=== PATIENT | female | born 1950 | race Caucasian/White ===

== ENCOUNTER 2019-02-21 13:06 | Outpatient (CLI) | payer MEDICARE ==
--- NOTE | 2019-02-21 13:29 | RAD ---
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 COMPARISON: None FINDINGS: Atherosclerosis of the aorta. Enlarged cardiac silhouette. Pulmonary vessels are prominent. Costophrenic angles are clear. Lungs are hyperinflated with chronic changes. No masses or consolidation. No pneumothorax or acute osseous abnormalities. Dorsal column stimulators are noted, t erminating in the mid thoracic spine IMPRESSION: 1. Atherosclerosis 2. Hyperinflation with chronic changes of the lung parenchyma.
== END 2019-02-21 13:07 | disposition home or self-care (01) ==
LOC: RAD 13:06
PROVIDERS: ATTEND Thoracic Surgery (Cardiothoracic Vascular Surgery)
DX: C34.11 Malignant neoplasm of upper lobe, right bronchus or lung (principal); C34.12 Malignant neoplasm of upper lobe, left bronchus or lung; I70.90 Unspecified atherosclerosis
CPT/HCPCS: 71046

== ENCOUNTER 2019-04-18 10:05 | Outpatient (CLI) | payer MEDICARE ==
--- NOTE | 2019-04-18 12:14 | RAD ---
PA AND LATERAL CHEST: Date: 04/18/19 HISTORY: Shortness of breath. FINDINGS: Heart size is borderline. Lungs are clear of any infiltrative process. In reviewing a 02/21/19 study, I do not see a significant degree of interval change. A dorsal column stimulator is present. IMPRESSION: Chronic lung change. No acute process. Pleural changes in the left lung are stable. POS: TPC
--- NOTE | 2019-04-18 12:24 | NM ---
NUCLEAR MEDICINE VENTILATION PERFUSION SCAN: Date: 04/18/19 INDICATION: History of lung cancer with partial left upper lobe lobectomy. Difficulty breathing. COMPARISON: Chest x-ray done earlier today. FINDINGS: The ventilation portion of the exam was performed using 11 mCi Xenon-133 gas, followed by the perfusi on study using 6.1 mCi 99m-technetium MAA. The ventilation study shows some minimal air trapping in the lung bases. The perfusion study does not show any signs for any segmental or subsegmental defect. IMPRESSION: Findings compatible with very low probability of pulmonary embolus. POS: T[facility]
== END 2019-04-18 10:06 | disposition home or self-care (01) ==
LOC: NM 10:05
PROVIDERS: ATTEND Internal Medicine Critical Care Medicine
DX: I26.99 Other pulmonary embolism without acute cor pulmonale (principal)
CPT/HCPCS: 71046; 78582; A9540; A9558

== ENCOUNTER 2019-12-24 09:52 | Inpatient (IN) | payer MEDICARE, MEDICAID, OTHER ==
[~2019-12-24 09:52] MED LIST: Iopamidol-370 76% 500 ML 1 ML ONE
[2019-12-24] MEDS ORDERED: Diltiazem 125 MG/25 ML ONE (10:26)
[2019-12-24 10:35] LABS: #Eosinphils 0.1 thou/uL (0.0-0.7); #Lymphocytes 0.9 thou/uL (1.20-3.40); #Monocytes 0.7 thou/uL (0.11-0.59); #Neutrophils 14.6 thou/uL (1.40-6.50); %Basophils 0.2 % (0.0-1.0); %Eosinophils 0.6 % (0.0-10.0); %Lymphocytes 5.7 % (21.0-51.0); %Monocytes 4.4 % (0.0-10.0); %Neutrophils 89.1 % (42.0-75.0); Hemoglobin 13.7 g/dL (12.0-16.0); Mean Corpuscular HGB CONC 31.8 g/dL (32.0-36.0); Mean Corpuscular Hemoglobin 25.1 pg (27.0-31.0); Mean Platelet Volume 7.9 fL (7.4-10.4); Platelet Count 268 thou/uL (130-400); RBC Distribution Width 14.8 % (11.5-14.5); Red Blood Cell (RBC) Count 5.47 mill/uL (4.20-5.40); White Blood Cell (WBC) Count 16.3 thou/uL (4.8-10.8)
[2019-12-24 10:52] LABS: ALT (SGPT) 19 U/L (8-55); AST (SGOT) 23 U/L (5-34); Albumin 4.4 g/dL (3.4-4.8); Alkaline Phosphatase 81 U/L (40-110); Anion Gap 17 mmol/L (10-20); BUN (Urea Nitrogen) 19 mg/dL (9.8-20.1); Bilirubin, Total 0.7 mg/dL (0.2-1.2); Calc. Creatinine Clearance 0 mL/min (70-130); Calcium 10.2 mg/dL (7.8-10.44); Carbon Dioxide 35 mmol/L (23-31); Chloride 86 mmol/L (98-107); Estimated GFR-MDRD 50; Glucose 160 mg/dL (80-115); Potassium 3.2 mmol/L (3.5-5.1); Protein, Total 7.4 g/dL (6.0-8.3); Sodium 135 mmol/L (136-145)
[2019-12-24] MEDS ORDERED: Promethazine HCl 25 MG/ML VIAL ONE (10:57)
--- NOTE | 2019-12-24 11:13 | RAD ---
CHEST 1 VIEW: Date: 12/24/2019 HISTORY: Atrial fibrillation. COMPARISON: Radiograph dated 12/04/2019. FINDINGS: There are two dorsal column stimulator electric paddles projecting over the mid thoracic spine. Lungs are clear. No pneumothorax. No effusion. Cardiac silhouette and mediastinal contours are similar. IMPRESSION: No acute intrathoracic abnormality. POS: HOME
--- NOTE | 2019-12-24 12:01 | CT ---
CT ABDOMEN WITH CONTRAST CT PELVIS WITH CONTRAST: DATE: 12/24/2019 HISTORY: 69-year-old female with nausea and vomiting TECHNIQUE: IV injection of iodinated contrast media: Administered Oral contrast media:Not administered FINDINGS: Lung bases: Clear Liver: No focal solid mass. Diffusely low hepatic attenuation suggestive of fatty liver. Clips in gal lbladder fossa. Spleen: No splenomegaly.. Pancreas: No mass or surrounding fat stranding.. Adrenals: No mass.. Kidneys: No hydronephrosis or enhancement abnormalities.. Ureters: No dilation. Bladder: No pathology identified. Abdominal aorta: No aneurysm. Small bowel: No dilation. Colon: No adjacent fat stranding. Appendix: Normal. Free air: None. Free fluid: None. Lumbar spine: Bilateral onlay bone graft fusion with successful ankylosis, and bilateral pedicle scre ws, at L3, L4, L5, and S1. Dorsal column stimulator leads enter lower thoracic spinal canal and ascend. IMPRESSION: 1. No major pathology identified.. 2. Status post cholecystectomy. 3. Posterior lumbar fusion with hardware. 4. Dorsal column spinal cord stimulator. 5. Status post cholecystectomy. 6. Questionable hepatic steatosis.
[2019-12-24 13:04] LABS: CRP (Inflammatory) 2.41 mg/dL (= or < 0.5); Magnesium 1.6 mg/dL (1.6-2.6)
[2019-12-24 13:10] LABS: Bilirubin Negative (Negative); Blood, Urine Negative (Negative); Clarity Clear (Clear); Glucose, Urine (Dipstick) Normal (Negative); Leukocyte 75 Leu/uL (Negative); Nitrite Negative (Negative); Protein, Urine (Dipstick) 10 mg/dL (Neg-Trace); RBC/HPF 0-3 HPF (0-3); Urobilinogen Normal mg/dL (Less than 2)
[2019-12-24 13:11] LABS: Bacteria/HPF 1+ HPF (None Seen)
[2019-12-24 13:14] LABS: Digoxin 1.26 ng/mL (0.8-2.0)
[2019-12-24] MEDS ORDERED: Ondansetron PF 4 MG/2 ML Vial ONE (13:58)
[2019-12-24] MEDS ORDERED: Potassium Chloride 20 MEQ TAB PO SCH (14:00)
[2019-12-24 14:58] VITALS: BMI 34.6
[2019-12-24] MEDS ORDERED: Morphine ER 15 MG TAB PO PRN (16:09)
[2019-12-24] MEDS ORDERED: Sodium Chloride 0.9% 1,000 ML IV SCH (16:15)
[2019-12-24] MEDS ORDERED: Ondansetron PF 4 MG/2 ML Vial IVP SCH (20:45)
[2019-12-24] MEDS: Famotidine/PF 20 mg/2ml Vial SLOW IVP SCH (21:00)
[2019-12-24] MEDS: Atenolol 25 MG TAB PO SCH (21:01)
[2019-12-24] MEDS: Enoxaparin Sodium 80 MG/0.8 ML SYRINGE SC SCH (21:02)
[2019-12-24] MEDS: Enoxaparin Sodium 30 MG/0.3 ML SYRINGE SC SCH (21:02)
[2019-12-24] MEDS: Acetaminophen 325 MG TAB PO PRN (21:08)
--- NOTE | 2019-12-24 21:40 | HP ---
CHIEF COMPLAINT: Generalized weakness. HISTORY OF PRESENT ILLNESS: The patient is a 69-year-old female with a past medical history of AFib, recently diagnosed about 3 weeks ago, hypothyroidism, who presents to the hospital with complaints of generalized weakness, worsening for the past 3 weeks. The patient stated that about 3 weeks ago, she started feeling nauseated and feeling weak, so she went to her PCP who did an EKG and told her that she has AFib. The patient at this time was not rate controlled. She was asked to get checked into the hospital, however, she refused to do so. She then found herself a shank sorter, Dr. Hogue, and went to see him. The shank sorter had given her options of being admitted to the hospital for rate control versus at home with a monitor, however, she opted for being home with a heart monitor. The patient stated that she has been working with a shank sorter to titrating her medications for her heart rate control, however, this has been very unsuccessful. She denies any fevers or chills. However, she has been nauseated, which has worsened for the past few days. She had some emesis this morning. She is normally a very active person; however, for the past 3 weeks, she is unable to do anything at all. Today, she was unable to even get up and move around from her bedroom to her living room. She normally takes care of her 94-year-old father. PAST MEDICAL HISTORY: She has a history of lung cancer. She has a history of hypothyroidism. She has also had cervical cancer, skin cancer, hyperlipidemia, obesity. The patient had adenocarcinoma of the lung, DANE. PAST SURGICAL HISTORY: She has had a hysterectomy, cholecystectomy. She has had lobectomy of left upper lobe in 2010 and spinal fusion. REVIEW OF SYSTEMS: All negative except for the ones mentioned above in the HPI. FAMILY HISTORY: Mother had lung cancer. Father had alcoholism. ALLERGIES: SHE IS ALLERGIC TO AMLODIPINE AND PLAQUENIL. MEDICATIONS: As of the followin. Levothyroxine 125 mcg daily. 2. Atorvastatin 20 mg daily. 3. Atenolol 25 mg t.i.d. 4. MS Contin 50 mg b.i.d. p.r.n. 5. Furosemide 40 mg daily. 6. Metformin 500 mg daily. 7. Sertraline 50 mg daily. SOCIAL HISTORY: She denies any alcohol use. Smoking, she is a former smoker. Denies any drug use either. PHYSICAL EXAMINATION: VITAL SIGNS: As of the following; temperature of 97.7, 85, 16, 97% on room air, 159/59. GENERAL: She is awake, alert, and oriented x3. Does not appear in any distress. CV: S1, S2 present. Irregularly irregular. LUNGS: Clear to auscultation. No rhonchi or wheezes noted. ABDOMEN: Soft. Bowel sounds are present x2. Nontender upon palpation. EXTREMITIES: Just mild pitting edema to bilateral lower weaver area. NEUROVASCULAR: No focal deficits noted. SKIN: No cuts, lesions, or bruises noted. LABORATORY RESULTS: WBC of 16.3, hemoglobin of 13.7, hematocrit of 43.2, platelets of 268. Chemistry; sodium of 135, potassium of 3.2, BUN of 19, creatinine of 1.09. Troponin of 0.025. Her BNP is 183. Her lipase is 26. She had a CT of abdomen and pelvis, which indicated hepatic steatosis, otherwise nothing significant was noted. She also has a dorsal column spinal cord stimulator. ASSESSMENT AND PLAN: The patient is a very pleasant 69-year-old female, who presents to the hospital with complaints of generalized weakness. 1. Atrial fibrillation with in out of RVR. She was initially in the ER in RVR. She was given Cardizem bolus and started on Cardizem drip. We will continue with that. We will check a TSH on her. We will get Cardiology to see her. She recently had an echocardiogram at the shank sorter's office. I will hold off on that. I will keep her n.p.o. after midnight. I will replace electrolytes and continue to monitor. 2. Hypokalemia. We will replace the potassium. 3. Mild leukocytosis. We will check her urine. Her urine indicated WBCs of 11 to 20 with 1+ bacteria. She did have a chest x-ray, which did not show any acute abnormalities. The patient has no recent travel. No sick contacts. 4. Hyperlipidemia. We will continue her atorvastatin. 5. Hypothyroidism. We will continue her levothyroxine. 6. Deep vein thrombosis prophylaxis. She is normally on Xarelto. We will hold the Xarelto and put her on Lovenox 1 mg/kg in case any intervention is required in the morning. Job ID: [id number]
[2019-12-25] MEDS: Levothyroxine Sodium 125 MCG TAB PO SCH (05:17)
[2019-12-25] MEDS ORDERED: Dextrose 50% Abboject 50 ML SYRINGE SLOW IVP PRN (09:17)
[2019-12-25] MEDS ORDERED: Dextrose 5% in Water 1,000 ML IV PRN (09:17)
[2019-12-25] MEDS ORDERED: HumaLOG 300 UNITS/3 ML VIAL SC PRN (09:17)
[2019-12-25] MEDS: Diltiazem 125 MG in Sodium Chloride 0.9% 100 ML IVPB SCH (09:55)
[2019-12-25 10:01] LABS: Anion Gap 15 mmol/L (10-20); BUN (Urea Nitrogen) 11 mg/dL (9.8-20.1); Calc. Creatinine Clearance 114 mL/min (70-130); Calcium 8.7 mg/dL (7.8-10.44); Carbon Dioxide 30 mmol/L (23-31); Chloride 91 mmol/L (98-107); Estimated GFR-MDRD 69; Glucose 132 mg/dL (80-115); Magnesium 1.6 mg/dL (1.6-2.6); Sodium 134 mmol/L (136-145)
[2019-12-25 10:09] LABS: Potassium 2.4 mmol/L (3.5-5.1)
[2019-12-25] MEDS ORDERED: Potassium Chloride 20 MEQ TAB PO SCH ×2 (10:30→14:00)
[2019-12-25] MEDS: Potassium Chloride 10 MEQ in Premix Bag 1 BAG IVPB SCH ×2 (11:45→14:43)
[2019-12-25] MEDS: Atenolol 25 MG TAB PO SCH (11:48)
[2019-12-25] MEDS: Famotidine/PF 20 mg/2ml Vial SLOW IVP SCH ×2 (11:51→20:40)
--- NOTE | 2019-12-25 12:13 | PDOC.HOSPP ---
- Subjective Encounter Date: 12/25/19 Encounter Time: 10:30 Subjective: pt up in bed continues to feel unwell. Had some evens of afib rvr on ambulation - Objective Vital Signs & Weight: Vital Signs (12 hours) Temp Pulse Resp BP Pulse Ox 12/25/19 11:48 95 12/25/19 07:40 96 12/25/19 07:32 98.1 F 95 20 129/59 L 95 12/25/19 04:32 97.9 F 75 18 118/57 L 94 L 12/25/19 00:53 100 12/25/19 00:20 69 109/56 L Weight Weight 243 lb 4.8 oz I&O: 12/24/19 12/25/19 12/26/19 06:59 06:59 06:59 Intake Total 1440 Balance 1440 Result Diagrams: 12/24/19 10:09 12/25/19 09:29 Hospitalist ROS - Review of Systems Cardiovascular: denies: chest pain, palpitations, orthopnea, paroxysmal noc. dyspnea, edema, light headedness, other Gastrointestinal: denies: nausea, vomiting, abdominal pain, diarrhea, constipation, melena, hematochezia, other Genitourinary: denies: dysuria, frequency, incontinence, hematuria, retention, other - Medication Medications: Active Medications Generic Name Dose Route Start Last Admin Trade Name Freq PRN Reason Stop Dose Admin Acetaminophen 650 mg 12/24/19 18:03 12/24/19 21:08 Tylenol PO 650 mg Q6H PRN Administration Headache/Fever or Pain Atenolol 25 mg 12/24/19 21:00 12/25/19 11:48 Tenormin PO 25 mg TID OVI Administration Enoxaparin Sodium 80 mg 12/24/19 21:00 12/24/19 21:02 Lovenox SC 80 mg 0900,2100 OVI Administration Enoxaparin Sodium 30 mg 12/24/19 21:00 12/24/19 21:02 Lovenox SC 30 mg 0900,2100 OVI Administration Famotidine 20 mg 12/24/19 21:00 12/25/19 11:51 Pepcid SLOW IVP 20 mg BID OVI Administration Diltiazem HCl 125 mg/ Sodium 125 mls @ 5 mls/hr 12/24/19 18:15 12/25/19 09:55 Chloride IVPB 125 mls INF OVI Administration Protocol 5 MG/HR Potassium Chloride 10 meq/ 100 mls @ 100 mls/hr 12/25/19 10:30 12/25/19 11:45 Device IVPB 12/25/19 12:29 100 mls Q1H OVI Administration Levothyroxine Sodium 125 mcg 12/25/19 06:00 12/25/19 05:17 Synthroid PO 125 mcg 0600 OVI Administration Sertraline HCl 50 mg 12/25/19 09:00 12/25/19 11:49 Zoloft PO 50 mg DAILY OVI Administration - Exam Neck: negative: supple, symmetric, no JVD, no thyromegaly, no lymphadenopathy, no carotid bruit, JVD Heart: negative: RRR, no murmur, no gallops, no rubs, normal peripheral pulses, irregular, diminshed peripheral pulses, murmur present, II/IV, III/IV Respiratory: negative: CTAB, no wheezes, no rales, no ronchi, normal chest expansion, no tachypnea, normal percussion, rales, rhonchi, tachypneic, wheezes Gastrointestinal: negative: soft, non-tender, non-distended, normal bowel sounds , no palpable masses, no hepatomegaly, no splenomegaly, no bruit, no guarding, no rigidity, tender to palpation, distended, diminished bowl sounds, voluntary guarding Extremities: 1+ LE edema Hosp A/P (1) Atrial fibrillation with RVR Code(s): I48.91 - UNSPECIFIED ATRIAL FIBRILLATION Status: Acute (2) Obesity Code(s): E66.9 - OBESITY, UNSPECIFIED Status: Acute (3) HTN (hypertension) Code(s): I10 - ESSENTIAL (PRIMARY) HYPERTENSION Status: Acute (4) Hypothyroid Code(s): E03.9 - HYPOTHYROIDISM, UNSPECIFIED Status: Acute (5) Hypokalemia Code(s): E87.6 - HYPOKALEMIA Status: Acute - Plan will continue current dose of Cardizem. when pt ambulates she gets tachycardia. will continue lovonox for now. May need EP. will stop her atenolol.
[2019-12-25] MEDS ORDERED: Furosemide 40 MG/4 ML VIAL IVP SCH (14:15)
[2019-12-25] MEDS: Enoxaparin Sodium 30 MG/0.3 ML SYRINGE SC SCH ×2 (14:43→20:41)
[2019-12-25] MEDS: Enoxaparin Sodium 80 MG/0.8 ML SYRINGE SC SCH ×2 (14:43→20:41)
--- NOTE | 2019-12-25 14:51 | CON ---
DATE OF CONSULTATION: 12/25/2019 REASON FOR CONSULTATION: Atrial fibrillation with rapid ventricular rate. HISTORY OF PRESENT ILLNESS: Ms. Bernabe is a very pleasant 69-year-old , who I have recently saw and evaluated as a new patient. She came to the office with atrial fibrillation with RVR. On two separate occasions, I recommended she be admitted for rate control. She states she had responsibilities at home taking care of her 94-year-old father and could not. Therefore, there were attempts made at the rate control as an outpatient, which had failed. She recently presented with nausea and vomiting, in addition, atrial fibrillation with RVR. During my visit this morning, she is much better after receiving Lasix in addition IV Cardizem. She did have an echo dated 2019 with a normal LVEF. Last visit in the office was 12/19/2019. HOME MEDICATIONS: Include; 1. Levothyroxine. 2. Dexilant. 3. Atorvastatin. 4. Atenolol. 5. Fish oil. 6. MS Contin. 7. Zanaflex. 8. Vitamin B12. 9. Sertraline. 10. Lasix. 11. Metformin. 12. Xarelto. 13. Cardizem CD. 14. Digoxin. 15. Metolazone. PAST MEDICAL HISTORY: Pulmonary hypertension, diastolic dysfunction, diabetes mellitus, obstructive sleep apnea, and new onset atrial fibrillation with hypertension. PAST SURGICAL HISTORY: Lobectomy, spinal fusion, hysterectomy, bladder sling, total knee replacement, and cholecystectomy. ALLERGIES: HYDROXYCHLOROQUINE AND AMLODIPINE. REVIEW OF SYSTEMS: A 10-point review of systems is reviewed and is as above, otherwise negative. PHYSICAL EXAMINATION: GENERAL: Patient is a pleasant female who is in no acute distress. The patient appears their stated age. VITAL SIGNS: Blood pressure 117/56, pulse 72, and temperature 97.8. She was found on 5 mg IV Cardizem. NEUROLOGIC: The patient is alert and oriented x3 with no focal neurologic deficits. HEENT: Sclerae without icterus. Mouth has moist mucous membranes with normal pallor. NECK: No JVD. Carotid upstroke brisk. No bruits bilaterally. LUNGS: Clear to auscultation with unlabored respirations. Mild crackles noted bilaterally. BACK: No scoliosis or kyphosis. CARDIAC: Irregularly irregular with normal S1 and S2. No S3 or S4 noted. No significant rubs, murmurs, thrills, or gallops noted throughout the precordium. PMI is not displaced. There is no parasternal heave. ABDOMEN: Soft, nontender, nondistended. No peritoneal signs present. No hepatosplenomegaly. No abnormal striae. EXTREMITIES: 2+ femoral and 2+ dorsalis pedis pulses. No cyanosis or clubbing. 1 to 2+ pitting edema. SKIN: No gross abnormalities. PERTINENT LABS: Potassium 2.4, sodium 134, and creatinine 0.82. C-reactive protein 2.4. BNP of 183. IMPRESSION: Atrial fibrillation with rapid ventricular response. RECOMMENDATIONS: Likely, Ms. Bernabe has developed worsening fluid overload from recent atrial fibrillation with RVR. There have been several attempts at rate control of Ms. Bernabe as an outpatient, which have failed. At this point, we would recommend restarting novel oral anticoagulation therapy. She is currently on Lovenox. We will also recommend reinstituting p.o. Cardizem and titrating up while titrating IV Cardizem down. Plan is to proceed with rate control. She has only been on anticoagulation therapy for 2 weeks. We would like for her to be on anticoagulation therapy for a total of four weeks. We will try and avoid JUANIS with cardioversion due to COVID crisis. Job ID: [id number]
[2019-12-25] MEDS: Potassium Chloride 20 MEQ TAB PO SCH (18:05)
[2019-12-25] MEDS ORDERED: Ondansetron PF 4 MG/2 ML Vial IVP SCH (22:45)
[2019-12-26] MEDS: Levothyroxine Sodium 125 MCG TAB PO SCH (05:03)
[2019-12-26] MEDS: Diltiazem 125 MG in Sodium Chloride 0.9% 100 ML IVPB SCH (05:56)
[2019-12-26 08:37] LABS: Anion Gap 15 mmol/L (10-20); BUN (Urea Nitrogen) 9 mg/dL (9.8-20.1); Calc. Creatinine Clearance 116 mL/min (70-130); Calcium 8.4 mg/dL (7.8-10.44); Carbon Dioxide 31 mmol/L (23-31); Chloride 93 mmol/L (98-107); Estimated GFR-MDRD 71; Glucose 146 mg/dL (80-115); Sodium 136 mmol/L (136-145)
[2019-12-26 08:40] LABS: Potassium 2.7 mmol/L (3.5-5.1)
[2019-12-26] MEDS ORDERED: Potassium Chloride 20 MEQ TAB PO SCH (09:00)
[2019-12-26] MEDS: Famotidine/PF 20 mg/2ml Vial SLOW IVP SCH ×2 (09:06→21:14)
[2019-12-26] MEDS: Cyanocobalamin (Vitamin B-12) 1,000 MCG TAB PO SCH (09:06)
[2019-12-26] MEDS: Potassium Chloride 20 MEQ TAB PO SCH ×2 (09:06→17:51)
[2019-12-26] MEDS: Enoxaparin Sodium 80 MG/0.8 ML SYRINGE SC SCH ×2 (09:07→21:06)
[2019-12-26] MEDS: Enoxaparin Sodium 30 MG/0.3 ML SYRINGE SC SCH ×2 (09:07→21:06)
[2019-12-26] MEDS: Acetaminophen 325 MG TAB PO PRN ×2 (12:04→21:06)
--- NOTE | 2019-12-26 12:38 | PRG ---
DATE OF SERVICE: 12/26/2019 SUBJECTIVE: Ms. Bernabe is doing better. She has much less nausea. She is diuresing. Her rate is better controlled on p.o. Cardizem and IV Cardizem. She is still on IV Cardizem at 5 mg/hour. OBJECTIVE: VITAL SIGNS: Blood pressure 129/64, pulse 82, temperature 98.1. LUNGS: Minimal crackles bilaterally. HEART: Irregular regular. ABDOMEN: Soft, nontender, and nondistended. EXTREMITIES: No edema. PERTINENT LABORATORY DATA: Hemoglobin 13.7, hematocrit 43.2, and creatinine . IMPRESSION: Atrial fibrillation with rapid ventricular response. RECOMMENDATIONS: 1. We will continue to titrate her Cardizem from 180 daily to 270 daily. 2. Decrease Cardizem IV from 5 mg/hour to 2.5 per hour. 3. Screen for COVID, in case the patient requires JUANIS with cardioversion. 4. Continue Lovenox and we will switch to novel oral anticoagulation therapy once she is close to discharge. 5. Overall, LVEF is normal. Job ID: [id number]
[2019-12-26] MEDS: tiZANidine HCl 4 MG TAB PO PRN (21:06)
[2019-12-27 04:46] LABS: Hemoglobin 11.5 g/dL (12.0-16.0); Platelet Count 219 thou/uL (130-400)
[2019-12-27] MEDS: Levothyroxine Sodium 125 MCG TAB PO SCH (04:50)
--- NOTE | 2019-12-27 05:42 | PDOC.HOSPP ---
- Subjective Encounter Date: 12/26/19 Encounter Time: 09:00 Subjective: pt up in bed feels well today - Objective Vital Signs & Weight: Vital Signs (12 hours) Temp Pulse Resp BP Pulse Ox 12/27/19 03:10 97.4 F L 104 H 18 173/71 H 92 L 12/26/19 20:00 98.3 F 119 H 18 172/74 H 98 Weight Weight 239 lb 3.2 oz I&O: 12/25/19 12/26/19 12/27/19 06:59 06:59 06:59 Intake Total 5319 392 4133 Balance 6665 350 2233 Result Diagrams: 12/27/19 04:28 12/27/19 04:28 Additional Labs: Accuchecks 12/26/19 12/26/19 12/26/19 20:43 17:18 11:00 POC Glucose 165 H 137 H 161 H 12/26/19 05:52 POC Glucose 148 H Hospitalist ROS - Review of Systems Respiratory: denies: cough, dry, shortness of breath, hemoptysis, SOB with excertion, pleuritic pain, sputum, wheezing, other Cardiovascular: denies: chest pain, palpitations, orthopnea, paroxysmal noc. dyspnea, edema, light headedness, other Gastrointestinal: denies: nausea, vomiting, abdominal pain, diarrhea, constipation, melena, hematochezia, other - Medication Medications: Active Medications Generic Name Dose Route Start Last Admin Trade Name Freq PRN Reason Stop Dose Admin Acetaminophen 650 mg 12/24/19 18:03 12/26/19 21:06 Tylenol PO 650 mg Q6H PRN Administration Headache/Fever or Pain Cyanocobalamin 5,000 mcg 12/26/19 09:00 12/26/19 09:06 Vitamin B-12 PO 5,000 mcg DAILY OVI Administration Diltiazem HCl 90 mg 12/26/19 06:00 12/27/19 04:50 Cardizem PO 90 mg Q8HR VOI Administration Enoxaparin Sodium 80 mg 12/24/19 21:00 12/26/19 21:06 Lovenox SC 80 mg 09,2099 OVI Administration Enoxaparin Sodium 30 mg 12/24/19 21:00 12/26/19 21:06 Lovenox SC 30 mg 0900,2100 OVI Administration Famotidine 20 mg 12/24/19 21:00 12/26/19 21:14 Pepcid SLOW IVP 20 mg BID OVI Administration Diltiazem HCl 125 mg/ Sodium 125 mls @ 2.5 mls/hr 12/24/19 18:15 12/26/19 05: 56 Chloride IVPB 125 mls INF OVI Administration Protocol 2.5 MG/HR Levothyroxine Sodium 125 mcg 12/25/19 06:00 12/27/19 04:50 Synthroid PO 125 mcg 0600 OVI Administration Morphine Sulfate 15 mg 12/24/19 16:09 12/25/19 19:36 Ms Contin PO 15 mg Q24H PRN Administration Pain Potassium Chloride 40 meq 12/25/19 17:00 12/26/19 17:51 K-Dur PO 40 meq BID-WM OVI Administration Sertraline HCl 50 mg 12/25/19 09:00 12/26/19 09:06 Zoloft PO 50 mg DAILY OVI Administration Sodium Chloride 10 ml 12/25/19 21:00 12/26/19 21:14 Flush - Normal Saline IVF 10 ml Q12HR OVI Administration Sodium Chloride 10 ml 12/25/19 09:19 12/25/19 22:55 Flush - Normal Saline IVF 10 ml PRN PRN Administration Saline Flush Tizanidine HCl 2 mg 12/24/19 17:00 12/26/19 21:06 Zanaflex PO 2 mg Q24H PRN Administration Muscle Pain - Exam Neck: negative: supple, symmetric, no JVD, no thyromegaly, no lymphadenopathy, no carotid bruit, JVD Heart: negative: RRR, no murmur, no gallops, no rubs, normal peripheral pulses, irregular, diminshed peripheral pulses, murmur present, II/IV, III/IV Respiratory: negative: CTAB, no wheezes, no rales, no ronchi, normal chest expansion, no tachypnea, normal percussion, rales, rhonchi, tachypneic, wheezes Hosp A/P (1) Atrial fibrillation with RVR Code(s): I48.91 - UNSPECIFIED ATRIAL FIBRILLATION Status: Acute (2) Obesity Code(s): E66.9 - OBESITY, UNSPECIFIED Status: Acute (3) HTN (hypertension) Code(s): I10 - ESSENTIAL (PRIMARY) HYPERTENSION Status: Acute (4) Hypothyroid Code(s): E03.9 - HYPOTHYROIDISM, UNSPECIFIED Status: Acute (5) Hypokalemia Code(s): E87.6 - HYPOKALEMIA Status: Acute - Plan will continue current dose of Cardizem. when pt ambulates she gets tachycardia. will continue lovonox for now. May need EP. will stop her atenolol. 5/6 a fib meds adjusted per cardio. covid testing for JUANIS cardioversion. will continue AC.
[2019-12-27 06:41] LABS: Anion Gap 13 mmol/L (10-20); BUN (Urea Nitrogen) 8 mg/dL (9.8-20.1); Calc. Creatinine Clearance 115 mL/min (70-130); Calcium 8.6 mg/dL (7.8-10.44); Carbon Dioxide 29 mmol/L (23-31); Chloride 97 mmol/L (98-107); Estimated GFR-MDRD 71; Glucose 151 mg/dL (80-115); Sodium 136 mmol/L (136-145)
[2019-12-27] MEDS: Enoxaparin Sodium 30 MG/0.3 ML SYRINGE SC SCH (08:32)
[2019-12-27] MEDS: Cyanocobalamin (Vitamin B-12) 1,000 MCG TAB PO SCH (08:32)
[2019-12-27] MEDS: Enoxaparin Sodium 80 MG/0.8 ML SYRINGE SC SCH (08:32)
[2019-12-27] MEDS: Flecainide 50 MG TAB PO SCH ×2 (08:35→20:32)
[2019-12-27] MEDS: Potassium Chloride 20 MEQ TAB PO SCH ×2 (08:35→17:45)
[2019-12-27] MEDS: Famotidine/PF 20 mg/2ml Vial SLOW IVP SCH ×2 (08:35→20:32)
[2019-12-27] MEDS ORDERED: Metoprolol Tartrate 25 MG TAB PO SCH (11:00)
[2019-12-27 12:06] LABS: SARS-CoV-2 MS2 Positive; SARS-CoV-2 N Gene Negative; SARS-CoV-2 S Gene Negative; SARS-CoV-2 orf1ab Negative
--- NOTE | 2019-12-27 13:05 | PDOC.HOSPP ---
- Subjective Encounter Date: 12/27/19 Encounter Time: 10:15 Subjective: pt up in bed no complains. - Objective Vital Signs & Weight: Vital Signs (12 hours) Temp Pulse Resp BP Pulse Ox 12/27/19 11:47 98.4 F 105 H 20 153/69 H 99 12/27/19 07:45 97.8 F 95 14 142/63 H 98 12/27/19 03:10 97.4 F L 104 H 18 173/71 H 92 L Weight Weight 239 lb 3.2 oz I&O: 12/26/19 12/27/19 12/28/19 06:59 06:59 06:59 Intake Total 780 1994 Balance 780 1994 Result Diagrams: 12/27/19 04:28 12/27/19 06:10 Additional Labs: Accuchecks 12/27/19 12/27/19 12/26/19 10:50 05:54 20:43 POC Glucose 152 H 161 H 165 H 12/26/19 17:18 POC Glucose 137 H Hospitalist ROS - Review of Systems Respiratory: denies: cough, dry, shortness of breath, hemoptysis, SOB with excertion, pleuritic pain, sputum, wheezing, other Cardiovascular: denies: chest pain, palpitations, orthopnea, paroxysmal noc. dyspnea, edema, light headedness, other Gastrointestinal: denies: nausea, vomiting, abdominal pain, diarrhea, constipation, melena, hematochezia, other - Medication Medications: Active Medications Generic Name Dose Route Start Last Admin Trade Name Freq PRN Reason Stop Dose Admin Acetaminophen 650 mg 12/24/19 18:03 12/26/19 21:06 Tylenol PO 650 mg Q6H PRN Administration Headache/Fever or Pain Cyanocobalamin 5,000 mcg 12/26/19 09:00 12/27/19 08:32 Vitamin B-12 PO 5,000 mcg DAILY OVI Administration Diltiazem HCl 90 mg 12/27/19 12:00 12/27/19 11:58 Cardizem PO 90 mg Q6HR OVI Administration Enoxaparin Sodium 80 mg 12/24/19 21:00 12/27/19 08:32 Lovenox SC 80 mg 09,2099 OVI Administration Enoxaparin Sodium 30 mg 12/24/19 21:00 12/27/19 08:32 Lovenox SC 30 mg 0900,2100 OVI Administration Famotidine 20 mg 12/24/19 21:00 12/27/19 08:35 Pepcid SLOW IVP 20 mg BID OVI Administration Flecainide Acetate 50 mg 12/27/19 09:00 12/27/19 08:35 Tambocor PO 50 mg Q12HR OVI Administration Diltiazem HCl 125 mg/ Sodium 125 mls @ 2.5 mls/hr 12/24/19 18:15 12/26/19 05: 56 Chloride IVPB 125 mls INF OVI Administration Protocol 2.5 MG/HR Levothyroxine Sodium 125 mcg 12/25/19 06:00 12/27/19 04:50 Synthroid PO 125 mcg 0600 OVI Administration Morphine Sulfate 15 mg 12/24/19 16:09 12/25/19 19:36 Ms Contin PO 15 mg Q24H PRN Administration Pain Potassium Chloride 40 meq 12/25/19 17:00 12/27/19 08:35 K-Dur PO 40 meq BID-WM OVI Administration Sertraline HCl 50 mg 12/25/19 09:00 12/27/19 08:34 Zoloft PO 50 mg DAILY OVI Administration Sodium Chloride 10 ml 12/25/19 21:00 12/27/19 08:36 Flush - Normal Saline IVF 10 ml Q12HR OVI Administration Sodium Chloride 10 ml 12/25/19 09:19 12/25/19 22:55 Flush - Normal Saline IVF 10 ml PRN PRN Administration Saline Flush Tizanidine HCl 2 mg 12/24/19 17:00 12/26/19 21:06 Zanaflex PO 2 mg Q24H PRN Administration Muscle Pain - Exam Neck: negative: supple, symmetric, no JVD, no thyromegaly, no lymphadenopathy, no carotid bruit, JVD Heart: negative: RRR, no murmur, no gallops, no rubs, normal peripheral pulses, irregular, diminshed peripheral pulses, murmur present, II/IV, III/IV Respiratory: negative: CTAB, no wheezes, no rales, no ronchi, normal chest expansion, no tachypnea, normal percussion, rales, rhonchi, tachypneic, wheezes Gastrointestinal: negative: soft, non-tender, non-distended, normal bowel sounds , no palpable masses, no hepatomegaly, no splenomegaly, no bruit, no guarding, no rigidity, tender to palpation, distended, diminished bowl sounds, voluntary guarding Extremities: 1+ LE edema Hosp A/P (1) Atrial fibrillation with RVR Code(s): I48.91 - UNSPECIFIED ATRIAL FIBRILLATION Status: Acute (2) Obesity Code(s): E66.9 - OBESITY, UNSPECIFIED Status: Acute (3) HTN (hypertension) Code(s): I10 - ESSENTIAL (PRIMARY) HYPERTENSION Status: Acute (4) Hypothyroid Code(s): E03.9 - HYPOTHYROIDISM, UNSPECIFIED Status: Acute (5) Hypokalemia Code(s): E87.6 - HYPOKALEMIA Status: Acute - Plan will continue current dose of Cardizem. when pt ambulates she gets tachycardia. will continue lovonox for now. May need EP. will stop her atenolol. 5/5 a fib meds adjusted per cardio. covid testing for NIKI cardioversion. will continue AC. 5/6 pt is npo going for niki if her covid is negative. will continue AC.
--- NOTE | 2019-12-27 13:54 | PRG ---
DATE OF SERVICE: 12/27/2019 SUBJECTIVE: Ms. Bernabe continues to be in atrial fibrillation with RVR. She has been on IV Cardizem over the last 3 days. I have titrated up her Cardizem and I have added beta-ariella therapy. She continues to have increased rates noted on IV Cardizem and with little exertion. OBJECTIVE: VITAL SIGNS: Blood pressure 153/69, pulse 105, and temperature 98.4. LUNGS: Clear to auscultation. HEART: Irregularly irregular. ABDOMEN: Soft, nontender, nondistended. EXTREMITIES: No edema. PERTINENT LABORATORY DATA: COVID negative. IMPRESSION: Atrial fibrillation with rapid ventricular response. RECOMMENDATIONS: I have attempted over the last 3 days to rate control Ms. Bernabe on IV Cardizem and titrating up her p.o. Cardizem. She is on nearly maximum doses of Cardizem. I have added beta-ariella therapy with still difficulty with control. I would therefore recommend JUANIS cardioversion. The patient has been on anticoagulation therapy only for 2 weeks. I discussed procedure in full detail with Ms. Bernabe. Risks include, but not limited to the following: Damage to teeth, mouth, back of throat; damage to esophagus requiring emergency surgery as well as reaction to medication and aspiration pneumonia. Other risks include, failed cardioversion, need for repeat cardioversion, stroke, burning of skin, and need for pacemaker. All questions were answered. Given the above, the patient agreed to proceed with above procedure. Further recommendations pending the above. Job ID: [id number]
[2019-12-27] MEDS ORDERED: Rivaroxaban 10 MG TAB PO SCH (18:00)
[2019-12-27] MEDS: tiZANidine HCl 4 MG TAB PO PRN (20:31)
[2019-12-27] MEDS: Acetaminophen 325 MG TAB PO PRN (20:32)
[2019-12-27] MEDS: Metoprolol Tartrate 25 MG TAB PO SCH (20:32)
[2019-12-27] MEDS: Diltiazem 125 MG in Sodium Chloride 0.9% 100 ML IVPB SCH (21:13)
[2019-12-28 04:22] LABS: Anion Gap 14 mmol/L (10-20); BUN (Urea Nitrogen) 7 mg/dL (9.8-20.1); Calc. Creatinine Clearance 114 mL/min (70-130); Calcium 8.6 mg/dL (7.8-10.44); Carbon Dioxide 25 mmol/L (23-31); Chloride 101 mmol/L (98-107); Estimated GFR-MDRD 70; Glucose 138 mg/dL (80-115); Potassium 3.4 mmol/L (3.5-5.1); Sodium 137 mmol/L (136-145)
[2019-12-28] MEDS: Levothyroxine Sodium 125 MCG TAB PO SCH (05:25)
[2019-12-28] MEDS: Potassium Chloride 20 MEQ TAB PO SCH (08:44)
[2019-12-28] MEDS: Metoprolol Tartrate 25 MG TAB PO SCH (08:45)
[2019-12-28] MEDS: Flecainide 50 MG TAB PO SCH (08:46)
[2019-12-28] MEDS: Cyanocobalamin (Vitamin B-12) 1,000 MCG TAB PO SCH (08:47)
[2019-12-28] MEDS: Famotidine/PF 20 mg/2ml Vial SLOW IVP SCH (08:47)
[2019-12-28] MEDS ORDERED: PROPOFOL 200 MG/20 ML VIAL ONE (10:18)
[2019-12-28 10:21] VITALS: TEMP 98.1
[2019-12-28 12:54] VITALS: BP 175/77
--- NOTE | 2019-12-29 04:43 | DIS ---
DATE OF ADMISSION: 12/24/2019 DATE OF DISCHARGE: 12/28/2019 DISCHARGE DIAGNOSES: 1. Generalized weakness. 2. Atrial fibrillation with rapid ventricular response status post cardioversion. 3. Hypertension. HOSPITAL COURSE: The patient is a 69-year-old female who initially presented to the hospital with complaints of generalized weakness. She has been having on and off atrial fibrillation with RVR for quite some time. At this time, she was put on subcu Lovenox and Cardiology was consulted. She initially underwent a COVID testing, which was negative. She went a cardioversion, which was successful and per Cardiology, she was okay to be discharged home. The patient was discharged home. She will follow up with her primary and also with Cardiology as outpatient. HOME MEDICATIONS: As of the followin. She is going to be on flecainide 50 mg twice daily. 2. Metoprolol 12.5 b.i.d. 3. Metolazone 5 mg daily. 4. Levothyroxine 125 daily. 5. Zyrtec 10 mg daily. 6. Morphine 50 mg q.24 hours p.r.n. 7. Xarelto 20 mg daily. 8. Cardizem 180 mg daily. 9. Lasix 40 mg daily. 10. Metformin 500 mg b.i.d. PHYSICAL EXAMINATION: VITAL SIGNS: Temperature 98.1, 92, 18, 97% on room air, 154/70. GENERAL: She is awake, alert, and oriented x3. Does not appear in distress. CV: S1, S2 present. No murmurs, rubs or gallops. Again, she will be discharged home. She will follow up with Cardiology as outpatient. Job ID: [id number]
--- NOTE | 2019-12-29 09:20 | PQF ---
DEB LEVY KARISHMA [id number] [facility]287 [id number] CLINICAL DOCUMENTATION CLARIFICATION FORM: POST DISCHARGE Addendum to original discharge summary date: ____ Late entry note date: __ NOT SURE WHAT YOU ARE ASKING ME. DATE:12/29/2019 ATTN:Ana Laura Owens Please exercise your independent, professional judgment in responding to the clarification form. Clinical indicators are provided on the bottom of this form for your review Please check appropriate box(s): [ ] Associated Diagnosis: Hyponatremia [ ] Abnormal laboratory findings not clinically significant [ ] Other diagnosis [ ] Unable to determine In addition, please specify: Present on Admission (POA): [ ] Yes [ ] No [ ] Unable to determine For continuity of documentation, please document condition throughout progress notes and discharge summary. Thank You. CLINICAL INDICATORS - SIGNS / SYMPTOMS/ LABS are present in the medical record: Laboratory 12/23 Sodium 135, Potassium 3.2 Laboratory 12/24 Sodium 134, Potassium 2.4 Vital signs 12/23 BP 157/92, Pulse 123, Resp 18, O2 sat 96% H&P p1 12/23 Dr Vasquez stated that about 3 weeks ago, she started feeling nauseated and feeling weak H&P p2 12/23 Dr Vasquez Extremities: mild pitting edema to bilateral weaver area Consult p2 12/24 Cardiac:Irregularly irregular DS p1 12/27 generalized weakness RISK FACTORS H&P p1 12/23 69 year-old Female H&P p1 12/23 HLD H&P p1 12/23 hx lung cancer H&P p1 12/23 AFib H&P p1 12/23 Hypokalemia H&P p1 12/23 Obesity Consult p1 12/24 Pulmonary HTN Consult p1 12/24 Diastolic dysfunction Consult 12/24 - NIKKY TREATMENT MAR 12/23 IV Sodium Chloride 1L Series of electrolyte labs (This form is maintained as a part of the permanent medical record) 2014 [employer] All Rights Reserved [email or web address]
--- NOTE | 2019-12-29 09:23 | PQF ---
DEB LEVY KARISHMA [id number] [facility]287 [id number] CLINICAL DOCUMENTATION CLARIFICATION FORM: POST DISCHARGE Addendum to original discharge summary date: ____ Late entry note date: __ DATE:12/29/2019 ATTN:Ana Laura Owens Please exercise your independent, professional judgment in responding to the clarification form. Clinical indicators are provided on the bottom of this form for your review Please check appropriate box(s): [ ] Primary/Essential Hypertension [ ] Emergency [ ] Urgency [ ] Crisis [ ] Hypertensive Heart Disease [ ] Hypertensive Heart and Kidney Disease [ ] Hypertension with Encephalopathy [ ] Transient Hypertension [ ] Secondary Hypertension (please specify etiology, if known) [ X ] Other diagnosis ___SHE HAD WEAKNESS DUE TO AFIB [ ] Unable to determine In addition, please specify: Present on Admission (POA): [ ] Yes [ ] No [ X] Unable to determine For continuity of documentation, please document condition throughout progress notes and discharge summary. Thank You. CLINICAL INDICATORS - SIGNS / SYMPTOMS / LABS Vital signs 12/23 BP 159/69, Pulse 107, Resp 18, Temp 97.7 Vital signs 12/25 BP 172/74, Pulse 119, Resp 18, Temp 98.3 Vital signs 12/26 BP 168/79, pulse 115, Resp 20, Temp 97.9 H&P p1 12/23 Dr Vasquez stated that about 3 weeks ago, she started feeling nauseated and feeling weak Consult p2 12/24 Has developed worsening fluid overload from recent Afib with RVR H&P p2 12/23 Dr Vasquez Extremities: mild pitting edema to bilateral weaver area Consult p2 12/24 Cardiac:Irregularly irregular RISKS: H&P p1 5/3 69 year-old Female H&P p1 12/23 HLD H&P p1 12/23 hx lung cancer H&P p1 12/23 AFib H&P p1 12/23 Hypokalemia H&P p1 12/23 Obesity Consult p1 12/24 Pulmonary HTN Consult p1 12/24 Diastolic dysfunction Consult 12/24 - NIKKY TREATMENTS: OCT 25 IV Cardizem 125mg OCT 25 Cardizem 60mg oral OCT 25 IV Lasix 40mg OCT 25 Lopressor 12.5mg oral JUANIS with Cardioversion 12/27 EKG 12/24 cardiology consult 12/24 Moose Daley (This form is maintained as a part of the permanent medical record) 2014 [employer]. All Rights Reserved [email or web address]
--- NOTE | 2019-12-29 09:24 | PQF ---
DEB LEVY KARISHMA [id number] [facility]287 [id number] CLINICAL DOCUMENTATION CLARIFICATION FORM: POST DISCHARGE Addendum to original discharge summary date: ____ Late entry note date: __ DATE:12/29/2019 ATTN:Frederic Owens Please exercise your independent, professional judgment in responding to the clarification form. Clinical indicators are provided on the bottom of this form for your review Please check appropriate box(s): HEART FAILURE: A. TYPE: [ ] Systolic / HFrEF [ ] Diastolic / HFpEF [ ] Combined Systolic / Diastolic B. ACUITY [ ] Acute [ ] Acute on Chronic [ ] Chronic [ ] Other diagnosis [ ] Unable to determine NO HEART FAILURE In addition, please specify: Present on Admission (POA): [ ] Yes [X ] No [ ] Unable to determine For continuity of documentation, please document condition throughout progress notes and discharge summary. Thank You. CLINICAL INDICATORS - SIGNS / SYMPTOMS / LABS Laboratory 12/23 BNP 183.6, Troponin 0.025, C-reactive Protein 2.41 Vital signs 12/23 BP 157/92, Pulse 123, Resp 18, O2 sat 96% H&P p1 12/23 Dr Vasquez stated that about 3 weeks ago, she started feeling nauseated and feeling weak Consult p2 12/24 Has developed worsening fluid overload from recent Afib with RVR H&P p2 12/23 Dr Vasquez Extremities: mild pitting edema to bilateral weaver area Consult p1 12/24 Diastolic dysfunction Consult p2 12/24 Cardiac:Irregularly irregular PN p1 12/25 Lungs:Minimal crackles bilaterally RISKS: H&P p1 12/23 69 year-old Female H&P p1 12/23 HLD H&P p1 12/23 hx lung cancer H&P p1 12/23 AFib H&P p1 12/23 Hypokalemia H&P p1 12/23 Obesity Consult p1 12/24 Pulmonary HTN Consult p1 12/24 - NIKKY TREATMENTS: OCT 25 IV Cardizem 125mg OCT 25 Cardizem 60mg oral OCT 25 IV Lasix 40mg OCT 25 Lopressor 12.5mg oral JUANIS with Cardioversion 12/27 Chest -Xray 12/23 cardiology consult 12/24 Moose Daley (This form is maintained as a part of the permanent medical record) 2014 [employer]. All Rights Reserved [email or web address]
--- NOTE | 2019-12-29 14:14 | OP ---
DATE OF PROCEDURE: 12/28/2019 PREPROCEDURE DIAGNOSIS: Atrial fibrillation. POSTPROCEDURE DIAGNOSIS: Atrial fibrillation. PROCEDURE PERFORMED: Transesophageal echocardiogram. DESCRIPTION OF PROCEDURE: The patient was consented for the procedure. The patient was to undergo JUANIS in preparation for synchronized cardioversion. Propofol used for conscious sedation. The probe was passed easily into esophagus. FINDINGS: Left atrial appendage well visualized. Velocities are greater than 50 cm/second. IMPRESSION: No obvious mass within the left atrial appendage. Job ID: [id number]
--- NOTE | 2020-01-01 16:10 | OP ---
DATE OF PROCEDURE: 12/28/2019 PREPROCEDURE DIAGNOSIS: Atrial fibrillation. POSTPROCEDURE DIAGNOSIS: Sinus rhythm. PROCEDURE PERFORMED: Synchronized cardioversion. DESCRIPTION OF PROCEDURE: The patient was consented for the procedure. The patient underwent propofol for conscious sedation. She underwent successful synchronized cardioversion at 150 joules. IMPRESSION: Successful synchronized cardioversion. Job ID: [id number]
== END 2019-12-28 15:20 | disposition home or self-care (01) | DRG 310 ==
LOC: ERS 09:52 → 2NO 12:56
PROVIDERS: ADMIT Internal Medicine; ATTEND Internal Medicine
PROC: 8E0ZXY6 Isolation (ICD-10-PCS; 2019-12-24)
PROC: 5A2204Z Restoration of Cardiac Rhythm, Single (ICD-10-PCS; principal; 2019-12-28)
PROC: B245ZZ4 Ultrasonography of Left Heart, Transesophageal (ICD-10-PCS; 2019-12-28)
DX: I48.91 Unspecified atrial fibrillation (principal); Z20.828 Contact with and (suspected) exposure to other viral communicable diseases; I10 Essential (primary) hypertension; E03.9 Hypothyroidism, unspecified; E66.9 Obesity, unspecified; E78.5 Hyperlipidemia, unspecified; E87.6 Hypokalemia; D72.829 Elevated white blood cell count, unspecified; I27.20 Pulmonary hypertension, unspecified; G47.33 Obstructive sleep apnea (adult) (pediatric); Z96.659 Presence of unspecified artificial knee joint; Z68.34 Body mass index [BMI] 34.0-34.9, adult; Z85.118 Personal history of other malignant neoplasm of bronchus and lung; Z85.41 Personal history of malignant neoplasm of cervix uteri; Z98.1 Arthrodesis status; Z90.710 Acquired absence of both cervix and uterus; Z90.49 Acquired absence of other specified parts of digestive tract; Z79.899 Other long term (current) drug therapy; Z79.890 Hormone replacement therapy; Z79.84 Long term (current) use of oral hypoglycemic drugs; Z88.8 Allergy status to other drugs, medicaments and biological substances; Z87.891 Personal history of nicotine dependence
CPT/HCPCS: 36415; 36416; 71045; 74177; 80048; 80053; 80162; 81003; 81015; 82565; 83690; 83735; 83880; 84443; 84484; 85014; 85018; 85025; 85049; 86140; 87086; 87635; 93005; 93312; 94760; 96365; 96366; 96368; J1650; J1940; J2405; J2550; J2704; J3475; J3480; J3490; Q9967; S0028; U0003

== ENCOUNTER 2020-01-09 09:16 | Outpatient (CLI) | payer MEDICARE, MEDICAID, OTHER ==
[2020-01-09 10:59] LABS: #Basophils 0.1 thou/uL (0.0-0.2); #Eosinphils 0.1 thou/uL (0.0-0.7); #Lymphocytes 2.1 thou/uL (1.20-3.40); #Monocytes 0.6 thou/uL (0.11-0.59); #Neutrophils 6.5 thou/uL (1.40-6.50); %Basophils 0.7 % (0.0-1.0); %Eosinophils 1.3 % (0.0-10.0); %Lymphocytes 22.4 % (21.0-51.0); %Neutrophils 69.6 % (42.0-75.0); Hemoglobin 12.3 g/dL (12.0-16.0); Mean Corpuscular HGB CONC 31.2 g/dL (32.0-36.0); Mean Corpuscular Hemoglobin 25.1 pg (27.0-31.0); Mean Corpuscular Volume 80.5 fL (78.0-98.0); Mean Platelet Volume 7.8 fL (7.4-10.4); Platelet Count 312 thou/uL (130-400); RBC Distribution Width 15.5 % (11.5-14.5); Red Blood Cell (RBC) Count 4.89 mill/uL (4.20-5.40); White Blood Cell (WBC) Count 9.3 thou/uL (4.8-10.8)
[2020-01-09 11:19] LABS: Anion Gap 16 mmol/L (10-20); BUN (Urea Nitrogen) 14 mg/dL (9.8-20.1); Calc. Creatinine Clearance 0 mL/min (70-130); Calcium 9.5 mg/dL (7.8-10.44); Carbon Dioxide 26 mmol/L (23-31); Chloride 98 mmol/L (98-107); Estimated GFR-MDRD 65; Glucose 125 mg/dL (80-115); Potassium 3.3 mmol/L (3.5-5.1); Sodium 137 mmol/L (136-145)
[2020-01-09 18:43] LABS: SARS-CoV-2 MS2 Positive; SARS-CoV-2 N Gene Negative; SARS-CoV-2 S Gene Negative; SARS-CoV-2 orf1ab Negative
== END 2020-01-09 09:17 | disposition home or self-care (01) ==
LOC: LABBT 09:16
PROVIDERS: ATTEND Internal Medicine Cardiovascular Disease
DX: Z01.812 Encounter for preprocedural laboratory examination (principal); Z11.59 Encounter for screening for other viral diseases; I48.91 Unspecified atrial fibrillation
CPT/HCPCS: 80048; 85025; U0003; 87635

== ENCOUNTER 2020-01-11 | Day surgery (SDC) | payer MEDICARE, MEDICAID | END 2020-01-11 13:00 | disposition home or self-care (01) | PROC: 5A2204Z Restoration of Cardiac Rhythm, Single (ICD-10-PCS; principal; 2020-01-11) | DX: I48.19 Other persistent atrial fibrillation (principal); I11.0 Hypertensive heart disease with heart failure; I50.32 Chronic diastolic (congestive) heart failure; I27.20 Pulmonary hypertension, unspecified; E11.9 Type 2 diabetes mellitus without complications; G47.33 Obstructive sleep apnea (adult) (pediatric); Z79.01 Long term (current) use of anticoagulants; Z79.2 Long term (current) use of antibiotics; Z79.84 Long term (current) use of oral hypoglycemic drugs; Z79.899 Other long term (current) drug therapy; Z88.8 Allergy status to other drugs, medicaments and biological substances; Z91.048 Other nonmedicinal substance allergy status; Z98.1 Arthrodesis status ==

== ENCOUNTER 2020-02-01 06:12 | Outpatient (CLI) | payer MEDICARE, OTHER ==
[2020-02-01 11:41] LABS: Hemoglobin 12.6 g/dL (12.0-16.0); Mean Corpuscular HGB CONC 30.8 g/dL (32.0-36.0); Mean Corpuscular Hemoglobin 24.3 pg (27.0-31.0); Mean Corpuscular Volume 78.9 fL (78.0-98.0); Mean Platelet Volume 7.8 fL (7.4-10.4); Platelet Count 324 thou/uL (130-400); RBC Distribution Width 16.1 % (11.5-14.5); Red Blood Cell (RBC) Count 5.18 mill/uL (4.20-5.40); White Blood Cell (WBC) Count 11.9 thou/uL (4.8-10.8)
[2020-02-01 12:03] LABS: Anion Gap 16 mmol/L (10-20); BUN (Urea Nitrogen) 10 mg/dL (9.8-20.1); Calc. Creatinine Clearance 0 mL/min (70-130); Calcium 8.9 mg/dL (7.8-10.44); Carbon Dioxide 23 mmol/L (23-31); Chloride 105 mmol/L (98-107); Estimated GFR-MDRD 67; Glucose 153 mg/dL (80-115); Potassium 4.2 mmol/L (3.5-5.1); Sodium 140 mmol/L (136-145)
[2020-02-01 12:11] LABS: INR-International Normal Ratio 2.1; PTT 43.1 sec (22.9-36.1)
== END 2020-02-01 06:13 | disposition home or self-care (01) ==
LOC: LABBT 06:12
PROVIDERS: ATTEND Internal Medicine Cardiovascular Disease
DX: Z01.818 Encounter for other preprocedural examination (principal); Z11.59 Encounter for screening for other viral diseases; I48.91 Unspecified atrial fibrillation
CPT/HCPCS: 80048; 85027; 85610; 85730; U0003; 87635

== ENCOUNTER 2020-02-05 08:04 | Observation (INO) | payer MEDICARE ==
[2020-02-05] MEDS ORDERED: Ondansetron PF 4 MG/2 ML Vial ONE (10:50)
[2020-02-05] MEDS ORDERED: Rocuronium Bromide 10 MG/ML (10ML VIAL) ONE (10:50)
[2020-02-05] MEDS ORDERED: Glycopyrrolate 0.2 MG/ML 5 ML SYRINGE ONE (10:50)
[2020-02-05] MEDS ORDERED: Dexamethasone 20 MG/5 ML VIAL ONE (10:50)
[2020-02-05] MEDS ORDERED: PROPOFOL 200 MG/20 ML VIAL ONE (10:50)
[2020-02-05] MEDS ORDERED: Heparin 25,000 units/D5W 500 ML ONE (11:31)
[2020-02-05] MEDS ORDERED: Heparin 10,000 UNITS/1 ML VIAL ONE ×2 (11:31→13:34)
[2020-02-05] MEDS ORDERED: Phenylephrine 10 MG/ML VIAL ONE (11:58)
[2020-02-05] MEDS ORDERED: Fentanyl 100 MCG/2 ML VIAL ONE ×3 (11:58→15:26)
[2020-02-05] MEDS ORDERED: Isoproterenol 0.2 MG/1 ML AMP ONE (12:40)
[2020-02-05] MEDS ORDERED: Protamine Sulfate 50 MG/5 ML VIAL ONE (14:50)
[2020-02-05] MEDS ORDERED: Ondansetron HCl/PF 4 MG/2 ML Vial IVP PRN (15:13)
[2020-02-05] MEDS ORDERED: Promethazine HCl 25 MG/ML VIAL IM PRN (15:13)
[2020-02-05] MEDS ORDERED: Promethazine HCl 25 MG/ML VIAL SLOW IVP PRN (15:13)
[2020-02-05] MEDS ORDERED: Ketorolac Tromethamine 30 MG/ML VIAL ONE (15:27)
[2020-02-05] MEDS ORDERED: Acetaminophen/Codeine 30-300mg Tablet PO PRN (15:30)
[2020-02-05] MEDS ORDERED: Ketorolac Tromethamine 30 MG/ML VIAL IVP PRN (15:31)
[2020-02-05] MEDS ORDERED: Promethazine HCl 25 MG/ML VIAL ONE (15:54)
[2020-02-05] MEDS ORDERED: Albuterol Sulfate 2.5 mg/3 ml Neb NEB PRN (15:56)
[2020-02-05] MEDS ORDERED: Morphine ER 15 MG TAB PO PRN (16:10)
[2020-02-05] MEDS ORDERED: tiZANidine HCl 4 MG TAB PO PRN (16:11)
[2020-02-05] MEDS ORDERED: Rivaroxaban 10 MG TAB PO SCH (17:00)
[2020-02-05] MEDS: metFORMIN 500 MG TAB PO SCH (17:20)
[2020-02-05] MEDS: Acetaminophen/Codeine 30-300mg Tablet PO PRN (17:20)
[2020-02-05] MEDS: Sucralfate 1 GM TAB PO SCH ×2 (17:20→20:37)
[2020-02-05 17:22] VITALS: BMI 33.6
[2020-02-05] MEDS: Fish Oil 1,000 MG CAP PO SCH (20:37)
[2020-02-05] MEDS ORDERED: Atorvastatin Calcium 20 MG TAB PO SCH (21:00)
--- NOTE | 2020-02-05 21:16 | OP ---
DATE OF PROCEDURE: 02/05/2020 PROCEDURES PERFORMED: Electrophysiology study and radiofrequency ablation. REASON FOR PROCEDURE: Mrs. Bernabe is a 69-year-old woman with history of chronic CHF, diastolic with preserved LVEF on echo, atrial fibrillation noted first time in November but could have present before. She has marked fatigue and tiredness while persisting atrial fibrillation despite the repeat cardioversion. She has a history of lung and cervical cancer in remission, obesity, and sleep apnea. She is well anticoagulated with Xarelto without fail over a month. DESCRIPTION OF PROCEDURE: The patient received general anesthesia by Anesthesia specialist. The left and right femoral venous area was prepped, draped, and cannulated x2 under ultrasound guidance. On the left side, an 11-Urdu sheath was used to advance an intracardiac echocardiogram probe, which was used to monitor the transseptal puncture, the catheter manipulation, and the pericardial space throughout the procedure. Also, from a left side, a Preface long sheath was used to maneuver a duo-Deca catheter into the CS and the right atrial position. From the right side initially, two 8-Urdu short sheaths were introduced, through which a ThermoCool SFST catheter was advanced to the right atrium. 3D map of the right atrium was obtained including the His and CS positions. Following that, IV heparin was administered in an IV bolus and drip fashion and was periodically adjusted to keep the ACT over 350. The short sheaths on the right femoral vein were exchanged to SL1 transseptal sheaths, which were used to perform transseptal puncture x2 with the help of a powered Medford needle with fluoroscopic and intracardiac echocardiographic monitoring. Following that, 3D map of left atrium was performed demonstrating left common pulmonary vein and severe scaring. Pulmonary venous isolation of the left common femoral vein and the two right-sided pulmonary veins were performed. Also, a roof line was placed and inferoposterior line was placed to isolate the posterior wall. Throughout the posterior wall cautery, careful attention was paid to the esophageal temperature with an esophageal temperature probe monitoring should any mild or heating occurred, high-flow irrigation was delivered in that spot. The patient remained in atrial fibrillation. Further lesions were placed over the CS roof in the bundle of left atrium, also in the left atrioseptal and inferoseptal area. The patient remains in atrial fibrillation. At this point, decision was made to perform cardioversion. The patient did not respond to 200 joules, but converted with 360 joules. Isuprel was administered, and any reconnections were checked and reablated. The left common and two right-sided pulmonary veins as well as posterior wall remained isolated. Catheter was withdrawn from the left side. Heparin was stopped, and a 3D map of the right atrium was obtained. A right atrial tachycardia was seen, which was originated from the superior vena cava. Isolation of the superior vena cava was performed using the ThermoCool SFST catheter. High-voltage pacing was performed before each ablation to detect diaphragmatic stimulation and avoid damage to nerve. Following that, the superior vena cava was easily isolated and the patient remained in sinus rhythm despite burst atrial pacing maneuvers. She did not reinduce any atrial fibrillation or other SVT. A baseline cycle length during atrial fibrillation 575 milliseconds, QRS 70 milliseconds, QT 245 milliseconds, and HV 50 milliseconds were noted. AV Wenckebach cycle length was about 350 milliseconds. The total of 79 lesions delivered at 21 minutes and 17 seconds. CONCLUSION: 1. Successful isolation of left common and right inferior and right superior pulmonary veins and posterior wall with a roof and an inferior line. 2. During Isuprel, a right atrial SVC tachycardia was noted and SVC isolation was also performed. 3. Left common PV and severe scarring of the LA was observed. 4. Further ablation lesion placed in the base of left atrium over the CS roof as well as in the left interatrial septum. 5. Cardioversion restored sinus rhythm. 6. Normal sinus AV kenyatta function. No evidence of accessory pathway demonstrated. 7. No further arrhythmia inducible at end of the case. PLAN: Resume oral anticoagulation and wean off AV kenyatta blocking agents. Monitor for recurrent atrial arrhythmias. Job ID: [id number] [facility]
[2020-02-06] MEDS: Acetaminophen/Codeine 30-300mg Tablet PO PRN (00:42)
[2020-02-06] MEDS ORDERED: Levothyroxine Sodium 125 MCG TAB PO SCH (06:00)
[2020-02-06] MEDS: metFORMIN 500 MG TAB PO SCH ×2 (08:17→11:14)
[2020-02-06] MEDS: Fish Oil 1,000 MG CAP PO SCH (08:18)
[2020-02-06] MEDS: Sucralfate 1 GM TAB PO SCH ×2 (08:19→12:22)
[2020-02-06] MEDS ORDERED: Rivaroxaban 10 MG TAB PO SCH ×2 (08:35→08:36)
[2020-02-06] MEDS ORDERED: Potassium Chloride 20 MEQ TAB PO SCH (09:00)
[2020-02-06] MEDS ORDERED: Furosemide 40 MG TAB PO SCH ×2 (09:00→12:00)
[2020-02-06] MEDS ORDERED: Furosemide 40 MG/4 ML VIAL SLOW IVP SCH (09:00)
[2020-02-06] MEDS ORDERED: Cyanocobalamin (Vitamin B-12) 1,000 MCG TAB PO SCH (09:00)
[2020-02-06] MEDS ORDERED: DESIPRAMINE FS SCH (09:00)
[2020-02-06] MEDS ORDERED: Loratadine 10 MG TAB PO SCH (09:00)
[2020-02-06 11:32] VITALS: BP 120/59; TEMP 98.5
--- NOTE | 2020-02-06 17:39 | EKG ---
Test Reason : STAT Blood Pressure : / mmHG Vent. Rate : 096 BPM Atrial Rate : 096 BPM P-R Int : 176 ms QRS Dur : 086 ms QT Int : 370 ms P-R-T Axes : 077 043 -79 degrees QTc Int : 467 ms Normal sinus rhythm Nonspecific T wave abnormality Abnormal ECG When compared with ECG of 05-FEB-2020 09:02, Sinus rhythm has replaced Atrial fibrillation Vent. rate has decreased BY [address] no longer depressed in Inferior leads ST no longer depressed in Anterior leads Confirmed by DR. Lopez MEDINA (3) on 02/06/2020 5:39:14 PM Referred By: DARRIAN Confirmed By:DR. Lopez MEDINA
--- NOTE | 2020-02-06 17:43 | EKG ---
Test Reason : Blood Pressure : / mmHG Vent. Rate : 114 BPM Atrial Rate : 114 BPM P-R Int : 000 ms QRS Dur : 086 ms QT Int : 304 ms P-R-T Axes : 084 061 239 degrees QTc Int : 419 ms Sinus tachycardia with Premature supraventricular complexes Abnormal ECG When compared with ECG of 05-FEB-2020 16:09, (Unconfirmed) Premature supraventricular complexes are now Present Confirmed by DR. Lopez MEDINA (3) on 02/06/2020 5:42:59 PM Referred By: [facility] Confirmed By:DR. Lopez MEDINA
--- NOTE | 2020-02-08 01:59 | DIS ---
DATE OF ADMISSION: 02/05/2020 DATE OF DISCHARGE: 02/06/2020 DIAGNOSIS: Atrial fibrillation. PROCEDURES PERFORMED: Include electrophysiology study with three dimensional mapping and radiofrequency ablation for atrial fibrillation. Successful isolation of the left common and right inferior and right superior pulmonary veins as well as posterior wall of the roof in inferior lines placed. With the Isuprel, right atrial SVC tachycardia was noted and SVC isolation was performed. Severe scarring of the left atrium was observed as well as a left common pulmonary vein. Further ablation was placed at the base of the left atrium over the CS roof as well as the left infra-atrial septum. Cardioversion was required to restore sinus rhythm. Normal AV kenyatta function was seen. No accessory pathway or further atrial arrhythmias were inducible at the end of the case. Recommendations were continue anticoagulation and watch for recurrent arrhythmias resuming antiarrhythmic therapy if recurrence is seen. Total ablation time was 21 minutes. HISTORY OF PRESENT ILLNESS: Ms. Bernabe is a 69-year-old woman with a history of congestive heart failure with diastolic dysfunction and preserved LVEF on echo. Atrial fibrillation was first diagnosed in November, but was likely present before this. Her arrhythmias had early recurrence. Following the cardioversion, she was taken to the EP lab for ablation as detailed above. She was anticoagulated with Xarelto for greater than 30 days prior to ablation with no missed doses. SUBJECTIVE: Ms. Bernabe is having some shortness of breath post ablation. No evident bleeding complications. She has not experienced any heart racing or palpitations postablation. She was given IV Lasix and has had good response to that, largely resolving her shortness of breath concern this morning. Overall, she feels stable and ready for discharge. OBJECTIVE: VITAL SIGNS: Temperature 98.5, pulse 99, blood pressure 120/59, respirations 14, and oxygen 98% on room air. GENERAL: The patient is alert and oriented. Speech is clear. Affect is appropriate. She is morbidly obese. NECK: Supple without jugular venous distention. HEART: Rate is irregularly irregular with occasional ectopic beats. There is a crisp S1 and S2. PMI is nondisplaced. LUNGS: Clear to auscultation. Slightly diminished in the bases due to habitus. ABDOMEN: Obese, soft, and nontender without palpable masses. Bilateral groin sites are stable without evidence of bleeding complication or hematoma. EXTREMITIES: Lower extremities are warm, dry to touch. Well perfused without clubbing, cyanosis, or edema. NEUROLOGIC: Grossly intact and nonfocal. Gait was not assessed. The patient was able to sit at bedside without difficulty. DIAGNOSTIC STUDIES: Telemetry and EKG show a largely sinus rhythm with occasional paroxysmal atrial tachycardia runs, spontaneously terminating to sinus rhythm. DISCHARGE MEDICATIONS: Resuming home medication of; 1. Zanaflex. 2. Zoloft. 3. Metformin. 4. MS Contin. 5. Lopressor 25 mg b.i.d. 6. Vitamin B12. 7. Levothyroxine. 8. DuoNeb. 9. Fish oil. 10. Cardizem 240 mg daily. 11. Zyrtec. 12. Atorvastatin. 13. Albuterol. 14. Desipramine. 15. Xarelto 20 mg daily. 16. Furosamide 40 mg daily, may take an additional 40 mg dose daily as needed for edema, shortness of breath, weight gain, or fluid retention. New prescriptions for; 1. Carafate 1 g p.o. q.i.d. x56 doses. 2. Protonix 40 mg p.o. daily for 30 days. CONDITION AT DISCHARGE: Stable. DISCHARGE INSTRUCTIONS: No lifting more than 10 to 15 pounds. Follow up with [facility] in 6 weeks. Contact our office with any postablation concerns. No soaking baths or driving until leg sites are well healed at least 3 days. No missed doses of anticoagulation. Job ID: [id number]
--- NOTE | 2020-02-09 14:47 | EKG ---
Test Reason : PREOP Blood Pressure : / mmHG Vent. Rate : 149 BPM Atrial Rate : 357 BPM P-R Int : 000 ms QRS Dur : 086 ms QT Int : 292 ms P-R-T Axes : 000 063 270 degrees QTc Int : 459 ms Atrial fibrillation with rapid ventricular response Abnormal ECG When compared with ECG of 24-DEC-2019 09:57, Vent. rate has increased BY 49 BPM T wave inversion no longer evident in Anterior leads Confirmed by DR. Lopez MEDINA (3) on 02/05/2020 2:19:45 PM Referred By: DARRIAN Confirmed By:DR. Lopez MEDINA
== END 2020-02-06 12:58 | disposition home or self-care (01) ==
LOC: CCL 08:04 → 2NO 14:27
PROVIDERS: ADMIT Internal Medicine Cardiovascular Disease; ATTEND Internal Medicine Cardiovascular Disease
PROC: 02583ZZ Destruction of Conduction Mechanism, Percutaneous Approach (ICD-10-PCS; principal; 2020-02-05)
PROC: 02K83ZZ Map Conduction Mechanism, Percutaneous Approach (ICD-10-PCS; 2020-02-05)
PROC: 4A023FZ Measurement of Cardiac Rhythm, Percutaneous Approach (ICD-10-PCS; 2020-02-05)
PROC: 4A0234Z Measurement of Cardiac Electrical Activity, Percutaneous Approach (ICD-10-PCS; 2020-02-05)
DX: I48.19 Other persistent atrial fibrillation (principal); I47.1 Supraventricular tachycardia; I50.32 Chronic diastolic (congestive) heart failure; I42.8 Other cardiomyopathies; E11.9 Type 2 diabetes mellitus without complications; E03.9 Hypothyroidism, unspecified; G47.30 Sleep apnea, unspecified; E66.9 Obesity, unspecified; Z68.33 Body mass index [BMI] 33.0-33.9, adult; Z85.118 Personal history of other malignant neoplasm of bronchus and lung; Z85.41 Personal history of malignant neoplasm of cervix uteri; Z79.01 Long term (current) use of anticoagulants; Z79.84 Long term (current) use of oral hypoglycemic drugs; Z79.899 Other long term (current) drug therapy; Z88.1 Allergy status to other antibiotic agents; Z88.8 Allergy status to other drugs, medicaments and biological substances; Z91.048 Other nonmedicinal substance allergy status; Z90.2 Acquired absence of lung [part of]; Z98.1 Arthrodesis status
CPT/HCPCS: 76942; 82962 ×2; 85347 ×2; 92960; 93005 ×2; 93613; 93623; 93655; 93656; 93657; 93662; 94640; C1732 ×3; C1759; C1884; 36416; 93010; 96374; 96376; G0378; J1100; J1644; J1885; J1940; J2370; J2405; J2550; J2704; J2720; J3010; J7620

== ENCOUNTER 2020-02-15 06:54 | Outpatient (CLI) | payer MEDICARE, MEDICAID, OTHER ==
[2020-02-15 14:09] LABS: Hemoglobin 11.7 g/dL (12.0-16.0); Mean Corpuscular Hemoglobin 23.9 pg (27.0-31.0); Mean Corpuscular Volume 76.9 fL (78.0-98.0); Mean Platelet Volume 8.6 fL (7.4-10.4); Platelet Count 349 thou/uL (130-400); RBC Distribution Width 16.8 % (11.5-14.5); Red Blood Cell (RBC) Count 4.88 mill/uL (4.20-5.40); White Blood Cell (WBC) Count 10.1 thou/uL (4.8-10.8)
[2020-02-15 14:51] LABS: Anion Gap 18 mmol/L (10-20); BUN (Urea Nitrogen) 7 mg/dL (9.8-20.1); Calc. Creatinine Clearance 0 mL/min (70-130); Calcium 8.3 mg/dL (7.8-10.44); Carbon Dioxide 23 mmol/L (23-31); Chloride 104 mmol/L (98-107); Estimated GFR-MDRD 56; Glucose 112 mg/dL (80-115); Potassium 3.5 mmol/L (3.5-5.1); Sodium 141 mmol/L (136-145)
[2020-02-16 12:08] LABS: SARS-CoV-2 MS2 Positive; SARS-CoV-2 N Gene Negative; SARS-CoV-2 S Gene Negative; SARS-CoV-2 orf1ab Negative
== END 2020-02-15 06:55 | disposition home or self-care (01) ==
LOC: LABBT 06:54
PROVIDERS: ATTEND Internal Medicine Cardiovascular Disease
DX: Z01.812 Encounter for preprocedural laboratory examination (principal); Z11.59 Encounter for screening for other viral diseases; I48.91 Unspecified atrial fibrillation
CPT/HCPCS: 80048; 85027; U0003; 87635

== ENCOUNTER 2020-02-19 05:11 | Day surgery (SDC) | payer MEDICARE, MEDICAID ==
[2020-02-19] MEDS ORDERED: PROPOFOL 20 ML ONE (06:36)
[2020-02-19] MEDS ORDERED: Lidocaine 1% PF 5 ML VIAL ONE ×2 (06:59→11:44)
--- NOTE | 2020-02-19 07:49 | OP ---
DATE OF PROCEDURE: 02/19/2020 PROCEDURE PERFORMED: Cardioversion. REASON FOR PROCEDURE: Ms. Bernabe is a 69-year-old woman with history of persistent atrial fibrillation status post ablation on the 04 of February. She has a recurrence. She was started on flecainide a couple of days back and she has not interrupted her anticoagulation. She is here for cardioversion. DESCRIPTION OF PROCEDURE: The patient received propofol by Anesthesia specialist. After adequate level of sedation achieved, a synchronized 100-joule shock did not but a followup 200 joules converted her back to sinus rhythm. Rhythm rate is about 65 beats per minute. The patient tolerated procedure well. CONCLUSION: Successful external cardioversion. PLAN: Continue flecainide or digoxin. Resume oral anticoagulants as well. Job ID: [id number]
--- NOTE | 2020-02-21 17:55 | EKG ---
Test Reason : S/P CARDIOVERSION Blood Pressure : / mmHG Vent. Rate : 064 BPM Atrial Rate : 064 BPM P-R Int : 176 ms QRS Dur : 090 ms QT Int : 382 ms P-R-T Axes : 083 054 047 degrees QTc Int : 394 ms Normal sinus rhythm Normal ECG When compared with ECG of 06-FEB-2020 07:28, Premature supraventricular complexes are no longer Present Vent. rate has decreased BY 50 BPM Non-specific change in ST segment in Inferior leads Non-specific change in ST segment in Lateral leads T wave inversion no longer evident in Inferior leads Nonspecific T wave abnormality no longer evident in Anterolateral leads Confirmed by GEORGE MACKENZIE (2) on 02/21/2020 5:54:35 PM Referred By: DARRIAN Confirmed By:GEORGE MACKENZIE
== END 2020-02-19 08:29 | disposition home or self-care (01) ==
LOC: SDC 05:11
PROVIDERS: ATTEND Internal Medicine Cardiovascular Disease
PROC: 5A2204Z Restoration of Cardiac Rhythm, Single (ICD-10-PCS; principal; 2020-02-19)
DX: I48.19 Other persistent atrial fibrillation (principal); I42.8 Other cardiomyopathies; I50.22 Chronic systolic (congestive) heart failure; G47.30 Sleep apnea, unspecified; E03.9 Hypothyroidism, unspecified; E11.9 Type 2 diabetes mellitus without complications; E66.9 Obesity, unspecified; Z68.33 Body mass index [BMI] 33.0-33.9, adult; Z85.118 Personal history of other malignant neoplasm of bronchus and lung; Z79.01 Long term (current) use of anticoagulants; Z79.84 Long term (current) use of oral hypoglycemic drugs; Z79.899 Other long term (current) drug therapy; Z88.1 Allergy status to other antibiotic agents; Z88.8 Allergy status to other drugs, medicaments and biological substances; Z91.048 Other nonmedicinal substance allergy status; Z90.2 Acquired absence of lung [part of]; Z98.1 Arthrodesis status
CPT/HCPCS: 92960; 93005; 93010; J2001; J2704

== ENCOUNTER 2020-06-27 08:30 | Outpatient (CLI) | payer MEDICARE, MEDICAID ==
--- NOTE | 2020-06-27 11:19 | CT ---
CT of the abdomen and pelvis: 06/27/2020 COMPARISON: 12/24/2019 HISTORY: Right upper quadrant pain with nausea TECHNIQUE: Axial CT imaging at 5 mm intervals from the lung bases through the pubic symphysis with in travenous and oral contrast. Coronal and sagittal reformatted imaging obtained. FINDINGS: The imaged lung bases are unremarkable aside from linear density within the left base with mild lateral pleural thickening which is a stable finding and suggests chronic scar. No free intraperitoneal air or fluid is seen. The gallbladder is surgically absent. The liver, spleen, pancreas, adrenal glands, and kidneys demons trate no acute findings. There is a small hypodense lesion within the posterior right renal midpole which is too small to characterize and statistically likely represents a small cyst. There is extensi ve posterior fusion hardware within the lumbar spine. There is a spinal stimulating device present There is significant stool seen throughout the colon. The appendix is unremarkable. No evidence for b owel inflammatory change or bowel obstruction. Multifocal scattered atherosclerotic calcification of the abdominal aorta and its branches noted. The pelvis, mesentery, and retroperitoneum demonstrate no evidence for lymphadenopathy. Review of the osseous structures demonstrates prominent multilevel degenerative change within the lum bar spine. No worrisome lytic or blastic bone lesion. IMPRESSION: No acute findings are seen within the abdomen/pelvis. No appreciable change when compared to the prior examination.
[2020-06-27] MEDS ORDERED: Iopamidol-370 76% 500 ML 1 ML ONE (13:27)
== END 2020-06-27 08:31 | disposition home or self-care (01) ==
LOC: BICCT 08:30
PROVIDERS: ATTEND Internal Medicine
DX: R10.11 Right upper quadrant pain (principal); R11.0 Nausea
CPT/HCPCS: 74177; 82565

== ENCOUNTER 2020-11-04 12:16 | Inpatient (IN) | payer MEDICARE, MEDICAID ==
[2020-11-04 13:29] LABS: #Basophils 0.1 thou/uL (0.0-0.2); #Eosinphils 0.1 thou/uL (0.0-0.7); #Lymphocytes 2.2 thou/uL (1.20-3.40); #Monocytes 0.6 thou/uL (0.11-0.59); #Neutrophils 6.5 thou/uL (1.40-6.50); %Basophils 0.7 % (0.0-1.0); %Eosinophils 1.1 % (0.0-10.0); %Lymphocytes 23.6 % (21.0-51.0); %Neutrophils 68.6 % (42.0-75.0); Hemoglobin 9.3 g/dL (12.0-16.0); Mean Corpuscular HGB CONC 28.5 g/dL (32.0-36.0); Mean Corpuscular Hemoglobin 19.5 pg (27.0-31.0); Mean Corpuscular Volume 68.6 fL (78.0-98.0); Mean Platelet Volume 10.2 fL (7.4-10.4); Platelet Count 304 thou/uL (130-400); RBC Distribution Width 18.1 % (11.5-14.5); Red Blood Cell (RBC) Count 4.78 mill/uL (4.20-5.40); White Blood Cell (WBC) Count 9.5 thou/uL (4.8-10.8)
[2020-11-04 13:44] LABS: ALT (SGPT) 10 U/L (8-55); AST (SGOT) 16 U/L (5-34); Albumin 4.1 g/dL (3.4-4.8); Alkaline Phosphatase 57 U/L (40-110); Anion Gap 15 mmol/L (10-20); BUN (Urea Nitrogen) 15 mg/dL (9.8-20.1); Bilirubin, Total 0.2 mg/dL (0.2-1.2); Calc. Creatinine Clearance 0 mL/min (70-130); Calcium 9.6 mg/dL (7.8-10.44); Carbon Dioxide 25 mmol/L (23-31); Chloride 102 mmol/L (98-107); Globulin 2.7 g/dL (2.4-3.5); Glucose 81 mg/dL (80-115); Iron 18 ug/dL (50-170); Iron Binding Capacity, Total 365 mcg/dL (265-497); Lipase 26 U/L (8-78); Potassium 4.9 mmol/L (3.5-5.1); Protein, Total 6.8 g/dL (5.8-8.1); Sodium 137 mmol/L (136-145)
[2020-11-04 13:47] LABS: Hypochromia SLIGHT = 6-15 cells (100X) (0-5/hpf); MDiff Complete? YES; Microcytosis MODERATE=15-30 cells (100X) (0-5/hpf); Platelet Morphology Comment Appears Adequate; Polychromasia SLIGHT = 2-3 cells (100X) (0-2/hpf)
[2020-11-04] MEDS ORDERED: Furosemide 40 MG/4 ML VIAL ONE ×2 (14:51→15:08)
[2020-11-04] MEDS ORDERED: Metoprolol Tartrate 5 MG/5 ML VIAL ONE (14:53)
[2020-11-04] MEDS ORDERED: Dextrose 5% in Water 1,000 ML IV PRN (15:45)
[2020-11-04] MEDS ORDERED: Acetaminophen 325 MG TAB PO PRN (15:45)
[2020-11-04] MEDS ORDERED: Dextrose 50% Abboject 50 ML SYRINGE SLOW IVP PRN (15:45)
[2020-11-04] MEDS ORDERED: HumaLOG 300 UNITS/3 ML VIAL SC PRN ×2 (15:46)
[2020-11-04] MEDS ORDERED: Albuterol 200 PUFF (6.7GM INHALER) INH PRN (15:48)
[2020-11-04 16:57] LABS: Troponin I Less than 0.010 ng/mL (< 0.028)
[2020-11-04 17:07] VITALS: BMI 29.8
[2020-11-04] MEDS ORDERED: Metoprolol Tartrate 25 MG TAB PO SCH ×2 (18:15→21:00)
[2020-11-04 19:17] LABS: Hemoglobin A1c 5.1 % (4.0-6.0)
[2020-11-04 19:20] LABS: Troponin I Less than 0.010 ng/mL (< 0.028)
[2020-11-04] MEDS ORDERED: Heparin 5,000 UNITS/ML VIAL SC SCH (21:00)
[2020-11-04] MEDS ORDERED: Atorvastatin Calcium 20 MG TAB PO SCH (21:00)
[2020-11-04] MEDS ORDERED: metFORMIN 500 MG TAB PO SCH (21:00)
[2020-11-04] MEDS: Fish Oil 1,000 MG CAP PO SCH (21:38)
[2020-11-04] MEDS: Metoclopramide HCl 10 MG TAB PO SCH (21:38)
[2020-11-04] MEDS: Enoxaparin Sodium 100 MG/ML SYRINGE SC SCH (21:39)
[2020-11-04] MEDS: Flecainide 50 MG TAB PO SCH (21:39)
[2020-11-05 04:58] LABS: Anion Gap 15 mmol/L (10-20); BUN (Urea Nitrogen) 15 mg/dL (9.8-20.1); Calc. Creatinine Clearance 100 mL/min (70-130); Calcium 8.8 mg/dL (7.8-10.44); Carbon Dioxide 22 mmol/L (23-31); Chloride 106 mmol/L (98-107); Glucose 91 mg/dL (80-115); Potassium 3.6 mmol/L (3.5-5.1); Sodium 139 mmol/L (136-145)
[2020-11-05] MEDS: Levothyroxine Sodium 125 MCG TAB PO SCH (05:41)
[2020-11-05 05:50] LABS: #Basophils 0.1 thou/uL (0.0-0.2); #Eosinphils 0.2 thou/uL (0.0-0.7); #Lymphocytes 2.8 thou/uL (1.20-3.40); #Monocytes 0.6 thou/uL (0.11-0.59); %Basophils 1.2 % (0.0-1.0); %Eosinophils 2.2 % (0.0-10.0); %Lymphocytes 32.4 % (21.0-51.0); %Neutrophils 57.2 % (42.0-75.0); Hemoglobin 8.6 g/dL (12.0-16.0); Mean Corpuscular HGB CONC 29.8 g/dL (32.0-36.0); Mean Corpuscular Hemoglobin 20.2 pg (27.0-31.0); Mean Corpuscular Volume 67.9 fL (78.0-98.0); Mean Platelet Volume 10.5 fL (7.4-10.4); Platelet Count 252 thou/uL (130-400); RBC Distribution Width 17.9 % (11.5-14.5); Red Blood Cell (RBC) Count 4.25 mill/uL (4.20-5.40); White Blood Cell (WBC) Count 8.7 thou/uL (4.8-10.8)
[2020-11-05 07:49] LABS: Platelet Count 237 thou/uL (130-400)
[2020-11-05] MEDS ORDERED: metFORMIN 500 MG TAB PO SCH (08:00)
[2020-11-05] MEDS: Enoxaparin Sodium 100 MG/ML SYRINGE SC SCH ×2 (08:00→20:40)
[2020-11-05] MEDS: Fish Oil 1,000 MG CAP PO SCH ×2 (08:02→20:38)
[2020-11-05] MEDS: Metoprolol Tartrate 25 MG TAB PO SCH ×2 (08:02→20:38)
[2020-11-05] MEDS: Flecainide 50 MG TAB PO SCH ×2 (08:03→20:39)
[2020-11-05] MEDS: Ascorbic Acid 500 mg Chewable Tablet PO SCH (08:04)
[2020-11-05] MEDS: Loratadine 10 MG TAB PO SCH (08:04)
[2020-11-05] MEDS: Metoclopramide HCl 10 MG TAB PO SCH ×3 (08:04→20:40)
[2020-11-05] MEDS: Iron Polysaccharides Complex 150 MG CAP PO SCH (08:13)
[2020-11-05] MEDS ORDERED: (Mecobalamin [B12 Active] 1,000 MCG Tab.Chew) PO SCH (09:00)
[2020-11-05] MEDS ORDERED: DESIPRAMINE HCL PO SCH (09:00)
[2020-11-05 14:30] LABS: SARS-CoV-2 PCR by NAA Not Detected (NotDetected)
[2020-11-05] MEDS: Atorvastatin Calcium 20 MG TAB PO SCH (20:39)
[2020-11-06] MEDS: Levothyroxine Sodium 125 MCG TAB PO SCH (05:27)
[2020-11-06] MEDS: Ascorbic Acid 500 mg Chewable Tablet PO SCH (08:02)
[2020-11-06] MEDS: Iron Polysaccharides Complex 150 MG CAP PO SCH (08:02)
[2020-11-06] MEDS: Metoprolol Tartrate 25 MG TAB PO SCH ×2 (08:02→20:44)
[2020-11-06] MEDS: Fish Oil 1,000 MG CAP PO SCH ×2 (08:02→20:44)
[2020-11-06] MEDS: Metoclopramide HCl 10 MG TAB PO SCH ×3 (08:02→20:44)
[2020-11-06] MEDS: Flecainide 50 MG TAB PO SCH ×2 (08:02→20:44)
[2020-11-06] MEDS: Loratadine 10 MG TAB PO SCH (08:03)
[2020-11-06] MEDS ORDERED: Metoprolol Tartrate 25 MG TAB PO SCH ×2 (09:54→09:55)
[2020-11-06] MEDS: Enoxaparin Sodium 100 MG/ML SYRINGE SC SCH ×2 (12:14→20:44)
[2020-11-06 12:35] LABS: #Basophils 0.1 thou/uL (0.0-0.2); #Eosinphils 0.1 thou/uL (0.0-0.7); #Lymphocytes 1.5 thou/uL (1.20-3.40); #Monocytes 0.5 thou/uL (0.11-0.59); #Neutrophils 5.3 thou/uL (1.40-6.50); %Basophils 0.8 % (0.0-1.0); %Eosinophils 0.7 % (0.0-10.0); %Lymphocytes 20.3 % (21.0-51.0); %Monocytes 6.9 % (0.0-10.0); %Neutrophils 71.3 % (42.0-75.0); Hemoglobin 8.4 g/dL (12.0-16.0); Mean Corpuscular HGB CONC 29.2 g/dL (32.0-36.0); Mean Corpuscular Hemoglobin 19.7 pg (27.0-31.0); Mean Corpuscular Volume 67.6 fL (78.0-98.0); Mean Platelet Volume 10.6 fL (7.4-10.4); Platelet Count 247 thou/uL (130-400); RBC Distribution Width 17.9 % (11.5-14.5); Red Blood Cell (RBC) Count 4.27 mill/uL (4.20-5.40); White Blood Cell (WBC) Count 7.4 thou/uL (4.8-10.8)
[2020-11-06 12:44] LABS: Anion Gap 15 mmol/L (10-20); BUN (Urea Nitrogen) 11 mg/dL (9.8-20.1); Calc. Creatinine Clearance 100 mL/min (70-130); Calcium 9.1 mg/dL (7.8-10.44); Carbon Dioxide 23 mmol/L (23-31); Chloride 109 mmol/L (98-107); Glucose 94 mg/dL (80-115); Potassium 4.6 mmol/L (3.5-5.1); Sodium 142 mmol/L (136-145)
[2020-11-06 12:58] LABS: Hypochromia MODERATE=16-30 cells (100X) (0-5/hpf); MDiff Complete? YES; Microcytosis MODERATE=15-30 cells (100X) (0-5/hpf); Ovalocytes SLIGHT = 2-5 cells (100X) (0-1/hpf); Platelet Morphology Comment Appears Adequate; Polychromasia SLIGHT = 2-3 cells (100X) (0-2/hpf); Tear Drops SLIGHT = 2-5 cells (100X) (0-1/hpf)
[2020-11-06] MEDS: Atorvastatin Calcium 20 MG TAB PO SCH (20:44)
[2020-11-06] MEDS ORDERED: Metoprolol Tartrate 50 MG TAB PO SCH (21:00)
[2020-11-07 04:55] LABS: #Basophils 0.1 thou/uL (0.0-0.2); #Eosinphils 0.1 thou/uL (0.0-0.7); #Lymphocytes 2.4 thou/uL (1.20-3.40); #Monocytes 0.5 thou/uL (0.11-0.59); #Neutrophils 4.1 thou/uL (1.40-6.50); %Basophils 1.2 % (0.0-1.0); %Eosinophils 1.5 % (0.0-10.0); %Lymphocytes 32.9 % (21.0-51.0); %Monocytes 7.3 % (0.0-10.0); %Neutrophils 57.1 % (42.0-75.0); Hemoglobin 8.1 g/dL (12.0-16.0); Mean Corpuscular HGB CONC 29.5 g/dL (32.0-36.0); Mean Corpuscular Hemoglobin 19.9 pg (27.0-31.0); Mean Corpuscular Volume 67.4 fL (78.0-98.0); Mean Platelet Volume 11.6 fL (7.4-10.4); Platelet Count 235 thou/uL (130-400); RBC Distribution Width 17.9 % (11.5-14.5); Red Blood Cell (RBC) Count 4.07 mill/uL (4.20-5.40); White Blood Cell (WBC) Count 7.2 thou/uL (4.8-10.8)
[2020-11-07 05:10] LABS: Anion Gap 11 mmol/L (10-20); BUN (Urea Nitrogen) 11 mg/dL (9.8-20.1); Calc. Creatinine Clearance 99 mL/min (70-130); Calcium 8.9 mg/dL (7.8-10.44); Carbon Dioxide 24 mmol/L (23-31); Chloride 109 mmol/L (98-107); Glucose 110 mg/dL (80-115); Sodium 140 mmol/L (136-145)
[2020-11-07] MEDS: Levothyroxine Sodium 125 MCG TAB PO SCH (05:53)
[2020-11-07 07:36] VITALS: TEMP 98
[2020-11-07] MEDS ORDERED: PROPOFOL 20 ML ONE (09:01)
[2020-11-07] MEDS ORDERED: Ketamine 50 MG/ML (10ML VIAL) ONE (09:11)
[2020-11-07] MEDS ORDERED: PROPOFOL 200 MG/20 ML VIAL ONE (09:16)
[2020-11-07 10:18] VITALS: BP 130/60
[2020-11-07] MEDS: Fish Oil 1,000 MG CAP PO SCH (10:25)
[2020-11-07] MEDS: Loratadine 10 MG TAB PO SCH (10:26)
[2020-11-07] MEDS: Flecainide 50 MG TAB PO SCH (10:26)
[2020-11-07] MEDS: Metoclopramide HCl 10 MG TAB PO SCH (10:26)
[2020-11-07] MEDS: Enoxaparin Sodium 100 MG/ML SYRINGE SC SCH (10:27)
[2020-11-07] MEDS: Ascorbic Acid 500 mg Chewable Tablet PO SCH (10:27)
[2020-11-07] MEDS: Iron Polysaccharides Complex 150 MG CAP PO SCH (10:27)
[2020-11-07] MEDS: Metoprolol Tartrate 25 MG TAB PO SCH (10:28)
[2020-11-07] MEDS ORDERED: Rivaroxaban 10 MG TAB PO SCH (18:00)
== END 2020-11-07 12:20 | disposition home health service (06) | DRG 309 ==
LOC: ERS 12:16 → 2NO 15:13
PROVIDERS: ADMIT Student in an Organized Health Care Education/Training Program; ATTEND Student in an Organized Health Care Education/Training Program
PROC: B24BZZ4 Ultrasonography of Heart with Aorta, Transesophageal (ICD-10-PCS; principal; 2020-11-07)
PROC: 5A2204Z Restoration of Cardiac Rhythm, Single (ICD-10-PCS; 2020-11-07)
DX: I48.91 Unspecified atrial fibrillation (principal); I50.32 Chronic diastolic (congestive) heart failure; F32.9 Major depressive disorder, single episode, unspecified; E03.9 Hypothyroidism, unspecified; E78.5 Hyperlipidemia, unspecified; E11.9 Type 2 diabetes mellitus without complications; R94.31 Abnormal electrocardiogram [ECG] [EKG]; D50.9 Iron deficiency anemia, unspecified; E66.9 Obesity, unspecified; Z85.118 Personal history of other malignant neoplasm of bronchus and lung; Z88.8 Allergy status to other drugs, medicaments and biological substances; Z79.84 Long term (current) use of oral hypoglycemic drugs; Z90.710 Acquired absence of both cervix and uterus; Z98.1 Arthrodesis status; Z87.891 Personal history of nicotine dependence; Z85.41 Personal history of malignant neoplasm of cervix uteri; Z68.29 Body mass index [BMI] 29.0-29.9, adult
CPT/HCPCS: 36415; 36416; 71045; 80048; 80053; 80061; 82728; 83036; 83540; 83550; 83690; 83880; 84443; 84484; 85025; 86850; 86900; 86901; 87635; 92960; 93005; 93312; 94760; 96374; 96375; J1650; J1940; J2704; U0003; U0005

== ENCOUNTER 2021-02-03 08:52 | Outpatient (CLI) | payer MEDICARE, MEDICAID ==
[2021-02-03] MEDS ORDERED: Iopamidol 370 76% 100 ML VIAL ONE (13:44)
== END 2021-02-03 08:53 | disposition home or self-care (01) ==
LOC: CT 08:52
PROVIDERS: ATTEND Internal Medicine Cardiovascular Disease
DX: I48.91 Unspecified atrial fibrillation (principal); R06.02 Shortness of breath; J90 Pleural effusion, not elsewhere classified; Z95.818 Presence of other cardiac implants and grafts
CPT/HCPCS: 71275; 82565; Q9967

== ENCOUNTER 2021-10-22 08:40 | Outpatient (CLI) | payer MEDICARE, MEDICAID | END 2021-10-22 08:41 | disposition home or self-care (01) | LOC: BICMAMMO 08:40 | PROVIDERS: ATTEND Internal Medicine | DX: N63.10 Unspecified lump in the right breast, unspecified quadrant (principal); R92.8 Other abnormal and inconclusive findings on diagnostic imaging of breast | CPT/HCPCS: 77066; G0279 ==

== ENCOUNTER 2022-11-16 08:31 | Outpatient (CLI) | payer MEDICARE, MEDICAID | END 2022-11-16 08:32 | disposition home or self-care (01) | LOC: BICMAMMO 08:31 | PROVIDERS: ATTEND Nurse Practitioner Family | DX: Z12.31 Encounter for screening mammogram for malignant neoplasm of breast (principal) | CPT/HCPCS: 77063; 77067 ==

== ENCOUNTER 2023-05-02 14:45 | Observation (INO) | payer MEDICARE, MEDICAID ==
[2023-05-02 15:38] LABS: #Basophils 0.1 thou/uL (0.0-0.2); #Eosinphils 0.1 thou/uL (0.0-0.7); #Monocytes 0.5 thou/uL (0.11-0.59); #Neutrophils 8.7 thou/uL (1.40-6.50); %Basophils 0.7 % (0.0-1.0); %Eosinophils 0.8 % (0.0-10.0); %Monocytes 5.2 % (0.0-10.0); %Neutrophils 82.8 % (42.0-75.0); Hematocrit 42.9 % (36.0-47.0); Hemoglobin 12.9 g/dL (12.0-16.0); Mean Corpuscular HGB CONC 30.1 g/dL (32.0-36.0); Mean Corpuscular Hemoglobin 25.8 pg (27.0-31.0); Mean Corpuscular Volume 85.8 fl (78.0-98.0); Mean Platelet Volume 10.1 fL (7.4-10.4); Platelet Count 185 10x3/uL (130-400); RBC Distribution Width 16.6 % (11.5-14.5); White Blood Cell (WBC) Count 10.5 10x3/uL (4.8-10.8)
[2023-05-02 16:03] LABS: INR-International Normal Ratio 1.1; Prothrombin Time 14.9 sec (12.0-14.7)
[2023-05-02 16:04] LABS: PTT 29.7 sec (22.9-36.1)
[2023-05-02 16:07] LABS: ALT (SGPT) 20 U/L (8-55); AST (SGOT) 20 U/L (5-34); Albumin 3.8 g/dL (3.4-4.8); Alkaline Phosphatase 98 U/L (40-110); Anion Gap 14 mmol/L (10-20); BUN (Urea Nitrogen) 12 mg/dL (9.8-20.1); Bilirubin, Total 0.3 mg/dL (0.2-1.2); CK (CPK) 43 U/L (29-168); Calc. Creatinine Clearance 0 mL/min (70-130); Calcium 9.4 mg/dL (7.8-10.44); Carbon Dioxide 24 mmol/L (23-31); Chloride 103 mmol/L (98-107); Estimated GFR 47; Globulin 2.3 g/dL (2.4-3.5); Glucose 87 mg/dL (83-110); Lipase 12 U/L (8-78); Potassium 3.5 mmol/L (3.5-5.1); Protein, Total 6.1 g/dL (5.8-8.1); Sodium 137 mmol/L (136-145)
[2023-05-02 16:20] LABS: Troponin I Less than 0.010 ng/mL (< 0.028)
[2023-05-02 16:57] LABS: Bacteria/HPF None Seen HPF (None Seen); Bilirubin Negative (Negative); Blood, Urine Negative (Negative); CAUTI Indications for Culture Dysuria,urgency,freq; Clarity Clear (Clear); Glucose, Urine (Dipstick) Normal (Negative); Ketone, Urine Negative (Negative); Leukocyte Negative Leu/uL (Negative); Nitrite Negative (Negative); Protein, Urine (Dipstick) Negative (Neg-Trace); RBC/HPF None Seen HPF (0-3); Squamous Epithelial None Seen HPF (0-3); Urobilinogen Normal mg/dL (Less than 2); WBC/HPF 0-3 HPF (0-3)
[2023-05-02 16:59] LABS: Urine Culture Reflex No No
[2023-05-02] MEDS ORDERED: Aspirin Chewable 81 MG TAB ONE (17:37)
[2023-05-02] MEDS ORDERED: dilTIAZem 25 MG/5 ML VIAL ONE (17:37)
[2023-05-02 20:06] LABS: Lactic Acid 1.9 mmol/L (0.5-2.2)
[2023-05-02] MEDS ORDERED: Acetaminophen 650 MG Suppository PR PRN (20:12)
[2023-05-02] MEDS ORDERED: Ondansetron PF 4 MG/2 ML Vial IVP PRN (20:15)
[2023-05-02] MEDS ORDERED: Ondansetron ODT 4 MG TAB SL PRN (20:15)
[2023-05-02] MEDS ORDERED: Acetaminophen 325 MG TAB PO PRN (20:15)
[2023-05-02 22:48] LABS: Troponin I Less than 0.010 ng/mL (< 0.028)
[2023-05-02] MEDS: Sodium Chloride 0.9% 1,000 ML IV SCH (22:55)
[2023-05-03 03:33] VITALS: BMI 25.4
[2023-05-03 04:46] LABS: #Eosinphils 0.1 thou/uL (0.0-0.7); #Monocytes 0.4 thou/uL (0.11-0.59); #Neutrophils 5.3 thou/uL (1.40-6.50); %Basophils 0.6 % (0.0-1.0); %Eosinophils 1.9 % (0.0-10.0); %Lymphocytes 15.2 % (21.0-51.0); %Monocytes 6.1 % (0.0-10.0); %Neutrophils 75.8 % (42.0-75.0); Hematocrit 35.9 % (36.0-47.0); Mean Corpuscular HGB CONC 30.6 g/dL (32.0-36.0); Mean Corpuscular Hemoglobin 26.2 pg (27.0-31.0); Mean Corpuscular Volume 85.5 fl (78.0-98.0); Mean Platelet Volume 10.4 fL (7.4-10.4); Platelet Count 148 10x3/uL (130-400); RBC Distribution Width 16.6 % (11.5-14.5); White Blood Cell (WBC) Count 6.9 10x3/uL (4.8-10.8)
[2023-05-03 05:15] LABS: Anion Gap 12 mmol/L (10-20); BUN (Urea Nitrogen) 11 mg/dL (9.8-20.1); Calc. Creatinine Clearance 73 mL/min (70-130); Calcium 8.6 mg/dL (7.8-10.44); Carbon Dioxide 25 mmol/L (23-31); Chloride 108 mmol/L (98-107); Estimated GFR 64; Glucose 97 mg/dL (83-110); Potassium 3.7 mmol/L (3.5-5.1); Sodium 141 mmol/L (136-145)
[2023-05-03] MEDS: Sodium Chloride 0.9% 1,000 ML IV SCH ×2 (05:29→07:08)
[2023-05-03] MEDS ORDERED: Aspirin Chewable 81 MG TAB PO SCH (09:00)
[2023-05-03] MEDS ORDERED: Tamsulosin HCl 0.4 MG CAP PO SCH (13:00)
[2023-05-03] MEDS ORDERED: Potassium Chloride 10 MEQ TAB PO PRN (13:01)
[2023-05-03] MEDS ORDERED: Furosemide 40 MG TAB PO PRN (13:01)
[2023-05-03] MEDS ORDERED: Albuterol 200 PUFF (6.7GM INHALER) INH PRN (13:01)
[2023-05-03] MEDS ORDERED: Acetaminophen 325 MG TAB PO PRN (13:41)
[2023-05-03 14:49] LABS: Bacteria/HPF None Seen HPF (None Seen); Bilirubin Negative (Negative); Blood, Urine 3+ (Negative); CAUTI Indications for Culture Dysuria,urgency,freq; Clarity Turbid (Clear); Glucose, Urine (Dipstick) Normal (Negative); Ketone, Urine Negative (Negative); Leukocyte 250 Leu/uL (Negative); Nitrite Negative (Negative); Protein, Urine (Dipstick) 30 mg/dL (Neg-Trace); RBC/HPF Greater than 50 HPF (0-3); Specific Gravity, Urine 1.019 (1.002-1.036); Squamous Epithelial None Seen HPF (0-3); Urobilinogen Normal mg/dL (Less than 2); WBC/HPF Greater than 50 HPF (0-3)
[2023-05-03 14:51] LABS: Urine Culture Reflex Yes Yes
[2023-05-03 15:55] VITALS: BP 138/70; TEMP 98.1
[2023-05-03] MEDS ORDERED: dilTIAZem 30 MG TAB PO PRN (17:50)
[2023-05-03] MEDS ORDERED: Mometasone 200 MCG/Formoterol 5 MCG 120 PUFF INHALER INH SCH (18:30)
[2023-05-03] MEDS ORDERED: Atorvastatin Calcium 40 MG TAB PO SCH (21:00)
[2023-05-03] MEDS ORDERED: metFORMIN 500 MG TAB PO SCH (21:00)
[2023-05-03] MEDS ORDERED: Metoprolol Tartrate 25 MG TAB PO SCH (21:00)
[2023-05-03] MEDS ORDERED: Flecainide Acetate 100 MG TAB PO SCH (21:00)
[2023-05-04] MEDS ORDERED: Levothyroxine Sodium 125 MCG TAB PO SCH (06:00)
[2023-05-04] MEDS ORDERED: Ipratropium/Albuterol 3 ML NEB NEB SCH (07:00)
[2023-05-04] MEDS ORDERED: Sertraline 100 MG TAB PO SCH (09:00)
[2023-05-04] MEDS ORDERED: Cyanocobalamin (Vitamin B-12) 1,000 MCG TAB PO SCH (09:00)
[2023-05-04] MEDS ORDERED: Tamsulosin HCl 0.4 MG CAP PO SCH (09:00)
== END 2023-05-03 18:20 | disposition home or self-care (01) ==
LOC: ERS 14:45 → 2SW 19:01
PROVIDERS: ADMIT Student in an Organized Health Care Education/Training Program; ATTEND Internal Medicine
DX: R53.1 Weakness (principal); I48.91 Unspecified atrial fibrillation; R33.9 Retention of urine, unspecified; N39.0 Urinary tract infection, site not specified; E11.9 Type 2 diabetes mellitus without complications; F32.A Depression, unspecified; I50.22 Chronic systolic (congestive) heart failure; I36.1 Nonrheumatic tricuspid (valve) insufficiency; E07.9 Disorder of thyroid, unspecified; E66.9 Obesity, unspecified; G47.00 Insomnia, unspecified; K21.9 Gastro-esophageal reflux disease without esophagitis; E78.5 Hyperlipidemia, unspecified; C34.90 Malignant neoplasm of unspecified part of unspecified bronchus or lung; D64.9 Anemia, unspecified; Z88.1 Allergy status to other antibiotic agents; Z88.8 Allergy status to other drugs, medicaments and biological substances; Z79.84 Long term (current) use of oral hypoglycemic drugs; Z98.890 Other specified postprocedural states; Z79.899 Other long term (current) drug therapy
CPT/HCPCS: 51702; 71045; 80048; 81001 ×2; 82550; 83605; 83690; 83880; 84484 ×2; 85025; 85610; 85730; 87040; 87086; 93005; 94640; 94760; 96361; 96372; 96374; 99284; G0378 ×3; 36415; 80053; 84443; J1650; J7050